=== PATIENT | male | born 1965 | race Caucasian/White ===

== ENCOUNTER 2017-01-22 11:42 | Inpatient (IN) | payer SELFPAY ==
[2017-01-22] MEDS ORDERED: ASPIRIN 81 MG TABLET, CHEWABLE PO ONE (12:26)
[2017-01-22] MEDS ORDERED: NORMAL SALINE 1000 ML 1,000 ML IV ONE ×3 (12:35→13:42)
[2017-01-22] MEDS ORDERED: IPRATROPIUM/ALBUTEROL 0.5-2.5 MG/3 ML AMPUL NEB ONE (12:35)
[2017-01-22] MEDS ORDERED: ALBUTEROL SULFATE 0.083% NEB 2.5 MG/3 ML AMPUL NEB ONE (12:36)
[2017-01-22] MEDS ORDERED: DEXAMETHASONE SOD PHOS INJ 10 MG/1 ML VIAL IV ONE (12:36)
[2017-01-22 12:47] LABS: HEMATOCRIT 39.2 % (37.9-51.0); HEMOGLOBIN 12.3 g/dL (13.5-17.0); HGB HCT DIFFERENCE -2.3; MEAN CORPUSCULAR HEMOGLOBIN 28.8 pg (27.0-33.4); MEAN CORPUSCULAR HGB CONC 31.5 g/dL (32.0-36.0); MEAN CORPUSCULAR VOLUME 91 fl (80-97); RED BLOOD COUNT 4.29 10^6/uL (4.35-5.55); RED CELL DISTRIBUTION WIDTH 14.5 % (11.5-14.0); WHITE BLOOD COUNT 9.4 10^3/uL (4.0-10.5)
[2017-01-22 12:56] LABS: PROTHROMBIN TIME 13.3 SEC (11.4-15.4)
[2017-01-22 13:02] LABS: ALANINE AMINOTRANSFERASE 17 U/L (21-72); ALBUMIN 3.6 g/dL (3.5-5.0); ALKALINE PHOSPHATASE 102 U/L (38-126); ANION GAP 9 (5-19); ASPARTATE AMINO TRANSFERASE 26 U/L (17-59); BILIRUBIN,DIRECT 0.3 mg/dL (0.0-0.4); BILIRUBIN,TOTAL 0.4 mg/dL (0.2-1.3); BLOOD UREA NITROGEN 19 mg/dL (7-20); CALCIUM 9.7 mg/dL (8.4-10.2); CARBON DIOXIDE 31 mmol/L (22-30); CHLORIDE 98 mmol/L (98-107); CREATINE KINASE 27 U/L (55-170); CREATININE RESULT 0.72 mg/dL (0.52-1.25); GLUCOSE 96 mg/dL (75-110); LIPASE 41.3 U/L (23-300); MAGNESIUM 1.9 mg/dL (1.6-2.3); POTASSIUM 4.7 mmol/L (3.6-5.0); TOTAL PROTEIN 7.7 g/dL (6.3-8.2)
[2017-01-22 13:13] LABS: CREATINE KINASE MB 1.21 ng/mL (<4.55)
[2017-01-22 13:16] LABS: TROPONIN I 0.036 ng/mL
--- NOTE | 2017-01-22 13:21 | RADIOLOGY REPORT (SQ) ---
EXAM DESCRIPTION: CHEST SINGLE VIEW COMPLETED DATE/TIME: 01/22/2017 1:08 pm REASON FOR STUDY: bed 17 cp COMPARISON: None. NUMBER OF VIEWS: One view. TECHNIQUE: Single frontal radiographic view of the chest acquired. LIMITATIONS: Lack of comparisons. FINDINGS: LUNGS AND PLEURA: Diffuse increased interstitial opacities in the lungs, likely chronic gi nadia additional scar and bullous emphysema in the right apex. No typical consolidating pneumonia. No significant pleural fluid. Slight right suprahilar increased density may be related to technique. MEDIASTINUM AND HILAR STRUCTURES: As above. Otherwise normal. HEART AND VASCULAR STRUCTURES: Heart likely grossly normal. Doubt failure. BONES: No acute findings. HARDWARE: None in the chest. OTHER: No other significant finding. IMPRESSION: Abnormal chest film. Findings may largely be chronic. See description above. Patient appears to be scheduled for CT, which will help to further evaluate the findings. TECHNICAL DOCUMENTATION: JOB ID: [id number] [employer]- All Rights Reserved
[2017-01-22 13:22] LABS: ARTERIAL BLOOD BASE EXCESS 2.2 mmol/L; ARTERIAL BLOOD O2 SATURATION 49.8 % (94-98)
[2017-01-22 13:25] LABS: BASOPHILS % (MANUAL) 0 % (0-2); EOSINOPHILS % (MANUAL) 5 % (0-6); LYMPHOCYTES % (MANUAL) 5 % (13-45); TOTAL CELLS COUNTED 100
[2017-01-22 13:26] LABS: HYPOCHROMASIA SLIGHT
[2017-01-22 13:41] LABS: ADD HIVPANEL? NO; HIV (1 AND 2) ANTIBODY NEGATIVE (NEGATIVE)
[2017-01-22] MEDS ORDERED: LEVOFLOXACIN 500 MG/D5W RTU 500 MG/100 ML RTUPB IV ONE (13:42)
--- NOTE | 2017-01-22 14:15 | RADIOLOGY REPORT (SQ) ---
EXAM DESCRIPTION: CT SOFT TISSUE NECK WITH COMPLETED DATE/TIME: 01/22/2017 2:03 pm REASON FOR STUDY: tachy hypoxia diffuse adenopathy COMPARISON: None. TECHNIQUE: Pre and post IV contrasted scanning from skull base through lung apices with review of gisselle ne, soft tissue and lung windows. Reconstructed coronal and sagittal MPR images reviewed. All image s stored on PACS. All CT scanners at this facility use dose modulation, iterative reconstruction, and/or weight based d osing when appropriate to reduce radiation dose to as low as reasonably achievable (ALARA). [facility]: Dose Right [facility]: CareDose [facility]: Dose Right [facility]: Teradose 4D [facility]: R[employer] Sy-Tec CONTRAST TYPE AND DOSE: contrast/concentration: Isovue 300.00 mg/ml; Total Contrast Delivered: 60.0 ml; Total Saline Delivered: 55.0 ml RENAL FUNCTION: Creatinine 0.7 RADIATION DOSE: Up-to-date CT equipment and radiation dose reduction techniques were employed. CTDIv ol: 10.1 mGy. DLP: 292 mGy-cm. . LIMITATIONS: None. FINDINGS: SKULL BASE: Intact. MAJOR SALIVARY GLANDS: No solid or cystic masses. No inflammatory changes. LYMPHADENOPATHY: Bulky bilateral diffuse adenopathy in the neck anteriorly and posteriorly extending inferiorly into the supra clavicular regions and upper mediastinum. Please see separately dictated c hest CT. Largest nodes probably measure up to more than 3.7 cm in short axis. MUCOSAL MASSES OR ASYMMETRY: No mucosal masses or asymmetry. LARYNX/CORDS: No abnormal findings. VASCULAR STRUCTURES: Mass-effect on the right internal jugular vein by adenopathy. Left jugular look s diminutive but relatively patent. LUNG APICES: Bullous emphysema. Adenopathy in the upper mediastinum. See dedicated chest CT. BONES: Spondylosis. No overt fracture or bone lesion. THYROID: Normal size. No masses. PARANASAL SINUSES: Clear. OTHER: No other significant finding. IMPRESSION: 1. Extensive neck adenopathy as above. Presumably related to lymphoma or other malignan cy. Please see separately dictated CT chest same date. TECHNICAL DOCUMENTATION: JOB ID: [id number] Quality ID # [id number]: Final reports with documentation of one or more dose reduction techniques (e.g., Au tomated exposure control, adjustment of the mA and/or kV according to patient size, use of iterative reconstruction technique) 2010 [employer]- All Rights Reserved
--- NOTE | 2017-01-22 14:17 | ER Document Report ---
ED General - General Chief Complaint: Chest Pain Stated Complaint: CHEST PAIN Time Seen by Provider: 01/22/17 12:37 TRAVEL OUTSIDE OF THE [place] IN LAST 30 DAYS: No - HPI Patient complains to provider of: Chest pain shortness of breath Notes: Patient coming in for evaluation chest pain shortness of breath no acute distorted. Patient also states he has nodules that have been made to have his neck underneath his armpits for the last 3 months. Patient states he has been grown in size. Patient denies any fevers chills nausea vomiting or night sweats. Patient does state he had a 15 pound weight loss recently. Patient is a smoker otherwise denies any alcohol or drug use. Patient states he is allergic to penicillin denies any taking any other medications denies any other past medical history. Patient states recently her mood from [place] to the area approximately 3 months ago - Related Data Allergies/Adverse Reactions: Penicillins Allergy (Verified 01/22/17 11:56) Home Medications: Current Home Medications No Home Medications 01/22/17 [History] Past Medical History - Social History Smoking Status: Current Every Day Smoker Frequency of alcohol use: None Drug Abuse: None Family History: Reviewed & Not Pertinent Renal/ Medical History: Denies: Hx Peritoneal Dialysis Surgical Hx: Negative Review of Systems - Review of Systems Constitutional: No symptoms reported EENT: No symptoms reported Cardiovascular: Chest pain Respiratory: Short of breath, Wheezing Gastrointestinal: No symptoms reported Genitourinary: No symptoms reported Male Genitourinary: No symptoms reported Musculoskeletal: No symptoms reported Skin: No symptoms reported Hematologic/Lymphatic: Swollen glands Neurological/Psychological: No symptoms reported -: Yes All other systems reviewed and negative Physical Exam - Vital signs Vitals: Pulse Resp BP Pulse Ox 117 H 20 132/93 H 90 L 01/22/17 11:57 01/22/17 11:57 01/22/17 11:57 01/22/17 11:57 Interpretation: Normal - General General appearance: Appears well, Alert - HEENT Head: Normocephalic, Atraumatic Eyes: Normal Conjunctiva: Normal Cornea: Normal Pupils: PERRL Neck: Other - Bilateral lymphadenopathy - Respiratory Respiratory status: No respiratory distress Chest status: Nontender Breath sounds: Normal Chest palpation: Normal - Cardiovascular Rhythm: Regular Heart sounds: Normal auscultation Murmur: No - Abdominal Inspection: Normal Distension: No distension Bowel sounds: Normal Tenderness: Nontender Organomegaly: No organomegaly - Back Back: Normal, Nontender - Extremities General upper extremity: Normal inspection, Nontender, Normal color, Normal ROM , Normal temperature, Other - Bilateral lymphadenopathy in the axilla region General lower extremity: Normal inspection, Nontender, Normal color, Normal ROM , Normal temperature, Normal weight bearing. No: Adis's sign - Neurological Neuro grossly intact: Yes Cognition: Normal Orientation: AAOx4 [place] Coma Scale Eye Opening: Spontaneous Helga Coma Scale Verbal: Oriented [place] Coma Scale Motor: Obeys Commands [place] Coma Scale Total: 15 Speech: Normal Motor strength normal: LUE, RUE, LLE, RLE Sensory: Normal - Psychological Associated symptoms: Normal affect, Normal mood - Skin Skin Temperature: Warm Skin Moisture: Dry Skin Color: Normal Course - Re-evaluation Re-evalutation: 01/22/17 14:55 Discussed finding with hospitalist Wenceslao at this time requesting CT of the head to evaluate for masses the patient more likely has underlying malignancy. 01/22/17 15:[address] was read by the radiologist as negative. Patient will start Lovenox per hospitalist request. Will admit the patient for further evaluation of his symptoms. I did update the patient of underlying cancer malignancy or lymphoma. Patient states understanding - Vital Signs Vital signs: Temp Pulse Resp BP Pulse Ox 117 H 22 H 122/78 100 01/22/17 11:57 01/22/17 15:23 01/22/17 15:21 01/22/17 15:23 - Laboratory Result Diagrams: 01/22/17 12:31 01/22/17 12:31 Laboratory results interpreted by me: 01/22/17 01/22/17 01/22/17 12:31 12:31 13:15 RBC 4.29 L Hgb 12.3 L MCHC 31.5 L RDW 14.5 H Seg Neuts % (Manual) 84 H Lymphocytes % (Manual) 5 L ABG pO2 26.2 L* ABG HCO3 26.7 H ABG Total CO2 28.0 H ABG O2 Saturation 49.8 L Carbon Dioxide 31 H ALT 17 L Creatine Kinase 27 L Urine Blood 01/22/17 01/22/17 14:13 14:26 RBC Hgb MCHC RDW Seg Neuts % (Manual) Lymphocytes % (Manual) ABG pO2 46.4 L ABG HCO3 26.6 H ABG Total CO2 27.9 H ABG O2 Saturation 82.7 L Carbon Dioxide ALT Creatine Kinase Urine Blood SMALL H Critical Care Note - Critical Care Note Total time excluding time spent on procedures (mins): 60 Comments: Multiple evaluations for abnormal vital signs. Discharge - Discharge Clinical Impression: Diffuse lymphadenopathy, Hypoxia, Infiltrative changes on CT scan Pulmonary embolism Qualifiers: Pulmonary embolism type: other Chronicity: acute Acute cor pulmonale presence: without acute cor pulmonale Qualified Code(s): I26.99 - Other pulmonary embolism without acute cor pulmonale Condition: Good Disposition: ADMITTED INPATIENT Admitting Provider: Darien Freeman Unit Admitted: [facility]
--- NOTE | 2017-01-22 14:22 | RADIOLOGY REPORT (SQ) ---
EXAM DESCRIPTION: CTA CHEST COMPLETED DATE/TIME: 01/22/2017 2:03 pm REASON FOR STUDY: tachy hypoxia COMPARISON: None. TECHNIQUE: CT scan of the chest performed using helical scanning technique with dynamic intravenous contrast injection. Images reviewed with lung, soft tissue and bone windows. Reconstructed coronal and sagittal MPR images reviewed. Additional 3 dimensional post-processing performed to develop Maximal Intensity Projection images ([place] P). All images stored on PACS. All CT scanners at this facility use dose modulation, iterative reconstruction, and/or weight based d osing when appropriate to reduce radiation dose to as low as reasonably achievable (ALARA). [facility]: Dose Right [facility]: CareDose [facility]: Dose Right [facility]: Teradose 4D [facility]: CrossChx CONTRAST TYPE AND DOSE: contrast/concentration: Isovue 370.00 mg/ml; Total Contrast Delivered: 100 ml; Total Saline Delivered: 106.0 ml Contrast bolus optimized for the pulmonary arteries. Not diagnostic for the aorta. RENAL FUNCTION: Creatinine 0.7 RADIATION DOSE: Up-to-date CT equipment and radiation dose reduction techniques were employed. CTDIv ol: 16.5 - 29.8 mGy. DLP: 1039 mGy-cm. . LIMITATIONS: None. FINDINGS: LUNGS AND PLEURA: Bullous upper lobe emphysema and scar. Patchy additional superimposed a reas of airspace disease in the right middle lobe particularly. Additional hazy ground-glass densiti es throughout the lungs and numerous tiny nodular opacities which are most conspicuous in the right u pper lobe. No significant pleural effusion. AORTA AND GREAT VESSELS: No aneurysm. Contrast bolus not optimized for the aorta. HEART: Cardiac enlargement with mild pericardial thickening. Mild coronary calcifications. PULMONARY ARTERIES: Positive for pulmonary embolus with clot extending particularly into the lower lo be arteries. There is also clot in the left upper lobe. HILAR AND MEDIASTINAL STRUCTURES: Bulky mediastinal adenopathy. Innumerable enlarged nodes throughou t all mediastinal stations with some js tissue also prominent in the hilar stations, right greater than left. HARDWARE: None in the chest. UPPER ABDOMEN: Suspect retrocrural and gastrohepatic ligament adenopathy. Incomplete assessment. THYROID AND OTHER SOFT TISSUES: Supraclavicular and axillary adenopathy particularly on the left. BONES: No acute or significant finding. 3D MIPS: Confirm above findings. OTHER: No other significant finding. IMPRESSION: 1. Positive for pulmonary embolus. 2. Extensive adenopathy, most notable in the mediast inum, supraclavicular tissues and left axilla. Presumably related to lymphoma or other malignancy. Extensive lung changes are present. Some of this is chronic. Superimposed acute infection and/or ma lignancy also likely. COMMENT: Quality ID # [id number]: Final reports with documentation of one or more dose reduction techniques (e.g., Automated exposure control, adjustment of the mA and/or kV according to patient size, use of iterative reconstruction technique) TECHNICAL DOCUMENTATION: JOB ID: [id number] [employer]- All Rights Reserved
[2017-01-22 14:32] LABS: APPEARANCE,URINE CLEAR; BILIRUBIN,URINE NEGATIVE (NEGATIVE); GLUCOSE, URINE NEGATIVE (NEGATIVE); KETONES,URINE NEGATIVE (NEGATIVE); LEUKOCYTE ESTERASE,URINE NEGATIVE (NEGATIVE); NITRITE,URINE NEGATIVE (NEGATIVE); PROTEIN,URINE NEGATIVE (NEGATIVE); URINE SPECIFIC GRAVITY 1.008; UROBILINOGEN,URINE NEGATIVE mg/dL (<2.0)
[2017-01-22 14:45] LABS: ARTERIAL BLOOD BASE EXCESS 1.7 mmol/L; ARTERIAL BLOOD O2 SATURATION 82.7 % (94-98)
[2017-01-22 14:48] LABS: URINE BARBITURATES SCREEN NEGATIVE; URINE METHADONE SCREEN NEGATIVE; URINE OPIATES LOW NEGATIVE; URINE PHENCYCLIDINE SCREEN NEGATIVE
--- NOTE | 2017-01-22 15:09 | RADIOLOGY REPORT (SQ) ---
EXAM DESCRIPTION: CT HEAD WITHOUT COMPLETED DATE/TIME: 01/22/2017 2:57 pm REASON FOR STUDY: eval mass COMPARISON: None. TECHNIQUE: Axial images acquired through the brain without intravenous contrast. Images reviewed wi th bone, brain and subdural windows. Images stored on PACS. All CT scanners at this facility use dose modulation, iterative reconstruction, and/or weight based d osing when appropriate to reduce radiation dose to as low as reasonably achievable (ALARA). [facility]: Dose Right [facility]: CareDose [facility]: Dose Right [facility]: Teradose 4D [facility]: Smart Cardiostrong RADIATION DOSE: Up-to-date CT equipment and radiation dose reduction techniques were employed. CTDIv ol: 64.6 mGy. DLP: 2326 mGy-cm. mGy. LIMITATIONS: None. FINDINGS: VENTRICLES: Normal size and contour. CEREBRUM: No masses. No hemorrhage. No midline shift. No evidence for acute infarction. Normal gra y/white matter differentiation. No areas of low density in the white matter. CEREBELLUM: No masses. No hemorrhage. No alteration of density. No evidence for acute infarction. EXTRAAXIAL SPACES: No fluid collections. No masses. ORBITS AND GLOBE: No intra- or extraconal masses. Normal contour of globe without masses. CALVARIUM: No fracture. PARANASAL SINUSES: No fluid or mucosal thickening. SOFT TISSUES: No mass or hematoma. OTHER: No other significant finding. IMPRESSION: NORMAL BRAIN CT WITHOUT CONTRAST. COMMENT: Quality ID # [id number]: Final reports with documentation of one or more dose reduction techniques (e.g., Automated exposure control, adjustment of the mA and/or kV according to patient size, use of iterative reconstruction technique) TECHNICAL DOCUMENTATION: JOB ID: [id number]- All Rights Reserved
[2017-01-22] MEDS ORDERED: ENOXAPARIN SODIUM INJ 80 MG/0.8 ML DISP.SYRIN SUBCUT SCH (15:15)
[2017-01-22] MEDS ORDERED: IPRATROPIUM/ALBUTEROL 0.5-2.5 MG/3 ML AMPUL NEB PRN ×2 (16:32→23:45)
[2017-01-22] MEDS ORDERED: ONDANSETRON HCL INJ/PF 4 MG/2 ML SDV IV PRN (16:32)
--- NOTE | 2017-01-22 17:02 | PDOC H&P ---
History of Present Illness Admission Date/PCP: 01/22/2015 PCP: None Patient complains of: Shortness of breath History of Present Illness: BIMAL YOUNG is a 51 year old white male with no significant past medical history who presents to the emergency room with complaints of shortness of breath. According to the patient he just moved into the area a couple of months ago. He states that before he moved he noticed some nodules near his collarbone. He states that they have been getting larger over the last 2-3 months. He has not sought any medical intervention until today when he presented to urgent care. On presentation there he complained of progressive shortness of breath and enlargement of these nodules. He was redirected here to the emergency room. In our ED the patient was found to have an oxygen saturation of 85% on nasal cannula and down to 83% on room air. ABG was obtained which showed PO2 of 46% on room air. The patient underwent CT scan of the chest which is positive for pulmonary embolus and extensive adenopathy most notable in the mediastinum supraclavicular tissues and left axilla. Presumably this is related to lymphoma or malignancy. Superimposed acute infection and/or malignancy is also likely. CT of the neck showed similar findings. CT of the head was also done which showed no acute findings. The patient was started on 2 L by nasal cannula oxygen but did not have great improvement in his oxygen saturation. He was changed over to bilevel Pap and his O2 sats increased to 98%. The patient was started on levofloxacin secondary to CT findings. In addition to this he was given therapeutic dose of Lovenox down in the emergency room. In my discussion with the patient he denies any fevers or chills. He does have chest pain especially with breathing and obvious shortness of breath. He denies any nausea vomiting but does however admit to about 10 pound weight loss. He is unclear over what period of time this is taken place but notes that his weight was down by about 10 pounds at the urgent care facility. The patient does not have a primary care physician. Past Medical History Medical History: None Past Surgical History Past Surgical History: Reports: None Social History Information Source: Patient Smoking Status: Current Every Day Smoker Frequency of Alcohol Use: None Drugs: None Past Social History Note: The patient has smoked about a pack to a day for approximately 10-15 years. He quit 5 years ago and transitioned over to E cigarettes. Family History Family History: None Family History: The patient is adopted and does not know his family history. Parental Family History Reviewed: Yes - The patient is adopted Children Family History Reviewed: Yes Sibling(s) Family History Reviewed.: Unknown Medication/Allergy Home Medications: No Home Medications 01/22/17 Allergies/Adverse Reactions: Penicillins Allergy (Verified 01/22/17 11:56) Review of Systems Review of Systems: Patient admits to chest pain, shortness of breath, 10 pound weight loss over an unspecified amount of time. He denies nausea, vomiting, fevers, chills, blood in stool, blood in the urine, throwing up blood, coughing up blood, diarrhea, constipation, musculoskeletal aches and pains or arthritis, abdominal pain, neck pain, difficulty swallowing, tenderness of the neck lesions, dysuria. Physical Exam Vital Signs: Temp Pulse Resp BP Pulse Ox 117 H 22 H 122/78 100 01/22/17 11:57 01/22/17 15:23 01/22/17 15:21 01/22/17 15:23 Intake & Output 01/21/17 01/22/17 01/23/17 06:59 06:59 06:59 Weight 68.1 kg GENERAL: This is a well-developed and nourished appearing white male resting in bed in respiratory distress with bilevel Pap in place. HEENT: Normocephalic atraumatic. Sclera are anicteric. Dry mucous membranes. Fair dentition. The patient has large golf ball size supraclavicular lymphadenopathy left greater than right. He also has bilateral submandibular lymphadenopathy. He has bilateral axillary lymphadenopathy. No inguinal lymphadenopathy. All of the lymph nodes seem to be mobile and firm. HEART: Regular rate and rhythm. No murmurs, rubs or gallops. LUNGS: Clear to auscultation bilaterally with equal rise and fall of the chest. The patient is resting easily on BiPAP but expressed claustrophobia. When the BiPAP is removed he becomes tachypneic about 2 minutes into our conversation at a rate ranging between 28 and 33. ABDOMEN: Soft, nontender, nondistended with normoactive bowel sounds EXTREMETIES: No clubbing, cyanosis or edema. 2+ peripheral pulses bilaterally. Strength is 5 out of 5 in both the upper and lower extremities bilaterally. : Genitals appear normal. NEURO: Awake, alert and oriented 3. Cranial nerves II through XII are specifically intact intact. Skin: Warm, dry normal color Results Laboratory Results: 01/22/17 12:31 01/22/17 12:31 01/22/17 01/22/17 01/22/17 12:31 12:31 13:15 WBC 9.4 RBC 4.29 L Hgb 12.3 L Hct 39.2 MCV 91 MCH 28.8 MCHC 31.5 L RDW 14.5 H Plt Count 353 Seg Neutrophils % Not Reportable Lymphocytes % Not Reportable Monocytes % Not Reportable Eosinophils % Not Reportable Basophils % Not Reportable Absolute Neutrophils Not Reportable Absolute Lymphocytes Not Reportable Absolute Monocytes Not Reportable Absolute Eosinophils Not Reportable Absolute Basophils Not Reportable Carbonic Acid 1.25 HCO3/H2CO3 Ratio 21:1 ABG pH 7.43 ABG pCO2 41.5 ABG pO2 26.2 L* ABG HCO3 26.7 H ABG O2 Saturation 49.8 L ABG Base Excess 2.2 FiO2 2 LPM Sodium 138.0 Potassium 4.7 Chloride 98 Carbon Dioxide 31 H Anion Gap 9 BUN 19 Creatinine 0.72 Est GFR ( Amer) > 60 Est GFR (Non-Af Amer) > 60 Glucose 96 Calcium 9.7 Magnesium 1.9 Total Bilirubin 0.4 AST 26 ALT 17 L Alkaline Phosphatase 102 Total Protein 7.7 Albumin 3.6 Lipase 41.3 Urine Color Urine Appearance Urine pH Ur Specific [place] Urine Protein Urine Glucose (UA) Urine Ketones Urine Blood Urine Nitrite Ur Leukocyte Esterase Urine WBC (Auto) Urine RBC (Auto) 01/22/17 01/22/17 14:13 14:26 WBC RBC Hgb Hct MCV MCH MCHC RDW Plt Count Seg Neutrophils % Lymphocytes % Monocytes % Eosinophils % Basophils % Absolute Neutrophils Absolute Lymphocytes Absolute Monocytes Absolute Eosinophils Absolute Basophils Carbonic Acid 1.29 HCO3/H2CO3 Ratio 20:1 ABG pH 7.41 ABG pCO2 42.8 ABG pO2 46.4 L ABG HCO3 26.6 H ABG O2 Saturation 82.7 L ABG Base Excess 1.7 FiO2 ROOM AIR Sodium Potassium Chloride Carbon Dioxide Anion Gap BUN Creatinine Est GFR ( Amer) Est GFR (Non-Af Amer) Glucose Calcium Magnesium Total Bilirubin AST ALT Alkaline Phosphatase Total Protein Albumin Lipase Urine Color STRAW Urine Appearance CLEAR Urine pH 6.0 Ur Specific [place]buck[place] 1.008 Urine Protein NEGATIVE Urine Glucose (UA) NEGATIVE Urine Ketones NEGATIVE Urine Blood SMALL H Urine Nitrite NEGATIVE Ur Leukocyte Esterase NEGATIVE Urine WBC (Auto) 1 Urine RBC (Auto) 1 01/22/17 01/22/17 12:31 12:31 Creatine Kinase 27 L CK-MB (CK-2) 1.21 Troponin I 0.036 Impressions: Chest X-Ray 01/22/17 12:26 IMPRESSION: Abnormal chest film. Findings may largely be chronic. See description above. Patient appears to be scheduled for CT, which will help to further evaluate the findings. Chest/Abdomen CTA 01/22/17 12:34 IMPRESSION: 1. Positive for pulmonary embolus. 2. Extensive adenopathy, most notable in the mediastinum, supraclavicular tissues and left axilla. Presumably related to lymphoma or other malignancy. Extensive lung changes are present. Some of this is chronic. Superimposed acute infection and/or malignancy also likely. Soft Tissue Neck CT 01/22/17 12:34 IMPRESSION: 1. Extensive neck adenopathy as above. Presumably related to lymphoma or other malignancy. Please see separately dictated CT chest same date. Head CT 01/22/17 14:36 IMPRESSION: NORMAL BRAIN CT WITHOUT CONTRAST. Assessment & Plan - Diagnosis (1) Acute hypoxemic respiratory failure Plan: Respiratory failure secondary to underlying PE and what is most likely lymphoma. Continue bilevel Pap. Obtain repeat ABG in the morning. As needed nebulizer treatments. Treat underlying conditions. (2) Pulmonary embolism Qualifiers: Pulmonary embolism type: other Chronicity: acute Acute cor pulmonale presence: without acute cor pulmonale Qualified Code(s): I26.99 - Other pulmonary embolism without acute cor pulmonale Plan: PE is likely secondary to underlying lymphoma. Continue Lovenox at therapeutic doses. This will of course need to be held for biopsy of the patient's lymphadenopathy. I will not start any oral anticoagulation as of yet. Firstly I would like for the patient to be anticoagulated with Lovenox for at least 24 hours. Additionally, I would like for him to have his lymph node biopsy prior to discharge. (3) Diffuse lymphadenopathy Plan: The patient has diffuse lymphadenopathy. At this point I suspect it is some sort of underlying lymphoma. Patient will need biopsy. Most likely his supraclavicular lymph node will be the most accessible site. I would like for the patient's respiratory status to stabilize before sending him to IR for biopsy. Likely he can undergo aspiration of the lymph node. We will need to hold his anticoagulation the night prior. Monospot test was negative and H IV is pending. (4) Nicotine dependence Plan: Smoking cessation/E cigarette cessation is advised. - Time Time Spent: 30 to 50 Minutes Anticipated discharge: Home - Inpatient Certification Medical Necessity: Need Close Monitoring Due to Risk of Patient Decompensation
[2017-01-22] MEDS: POTASSI CL 20 MEQ/1/2NS 1L 20 MEQ/1,000 ML RTUINJ IV PRN (18:34)
--- NOTE | 2017-01-22 20:22 | EKG REPORT ---
SEVERITY:- BORDERLINE ECG - SINUS TACHYCARDIA RIGHT AXIS DEVIATION LOW VOLTAGE IN FRONTAL LEADS BORDERLINE T ABNORMALITIES, INFERIOR LEADS POOR R PROGRESSION ANTERIOR PRECORDIAL LEADS. : Confirmed by: Vinnie Hagan MD 22-Jan-2017 20:21:43
[2017-01-23] MEDS: ENOXAPARIN SODIUM INJ 80 MG/0.8 ML DISP.SYRIN SUBCUT SCH ×3 (00:55→23:28)
[2017-01-23 05:17] LABS: ANION GAP 10 (5-19); BLOOD UREA NITROGEN 12 mg/dL (7-20); CALCIUM 9.6 mg/dL (8.4-10.2); CARBON DIOXIDE 27 mmol/L (22-30); CHLORIDE 104 mmol/L (98-107); CREATININE RESULT 0.54 mg/dL (0.52-1.25); GLUCOSE 106 mg/dL (75-110); MAGNESIUM 1.9 mg/dL (1.6-2.3); POTASSIUM 4.6 mmol/L (3.6-5.0); SODIUM 140.7 mmol/L (137-145)
[2017-01-23 05:32] LABS: HEMATOCRIT 34.2 % (37.9-51.0); HEMOGLOBIN 11.3 g/dL (13.5-17.0); HGB HCT DIFFERENCE -0.3; MEAN CORPUSCULAR HEMOGLOBIN 29.7 pg (27.0-33.4); MEAN CORPUSCULAR HGB CONC 32.9 g/dL (32.0-36.0); MEAN CORPUSCULAR VOLUME 90 fl (80-97); RED CELL DISTRIBUTION WIDTH 14.7 % (11.5-14.0); WHITE BLOOD COUNT 8.4 10^3/uL (4.0-10.5)
[2017-01-23 05:56] LABS: BASOPHILS % (MANUAL) 0 % (0-2); EOSINOPHILS % (MANUAL) 1 % (0-6); LYMPHOCYTES % (MANUAL) 2 % (13-45); TOTAL CELLS COUNTED 100
[2017-01-23 05:57] LABS: HYPOCHROMASIA SLIGHT
[2017-01-23 05:59] LABS: ANISOCYTOSIS SLIGHT; SCHISTOCYTES SLIGHT
[2017-01-23] MEDS ORDERED: HYDRALAZINE HCL 10 MG TABLET PO PRN (08:12)
[2017-01-23] MEDS: LEVOFLOXACIN 500 MG TABLET PO SCH (09:24)
[2017-01-23] MEDS: POTASSI CL 20 MEQ/1/2NS 1L 20 MEQ/1,000 ML RTUINJ IV PRN (09:25)
[2017-01-23] MEDS: ACETAMINOPHEN 325 MG TABLET PO PRN (11:16)
[2017-01-23 15:24] LABS: ARTERIAL BLOOD O2 SATURATION 90.7 % (94-98)
--- NOTE | 2017-01-23 15:42 | PDOC PROGRESS REPORT ---
Subjective Progress Note for:: 01/23/17 Subjective:: this is a follow-up visit for pulmonary embolism and diffuse lymphadenopathy. Patient was seen at the bedside this morning andStates that he did well overnight. He said that he was able to maintain his breathing by nasal cannula. He denies any current chest pain or worsening shortness of breath. We did rediscuss his potential diagnoses. His mother and aunt were at the bedside. Physical Exam Vital Signs: Temp Pulse Resp BP Pulse Ox 98.1 F 119 H 20 148/86 H 96 01/23/17 11:25 01/23/17 14:00 01/23/17 11:25 01/23/17 11:25 01/23/17 11:25 Intake & Output 01/22/17 01/23/17 01/24/17 06:59 06:59 06:59 Intake Total 1109 Balance 1109 Weight 66.6 kg GENERAL: This is a well-developed and nourished appearing white male resting in bed in no acute respiratory distress today. Looking much better HEENT: bilateral submandibular lymphadenopathy firm and mobile HEART: Regular rate and rhythm. No murmurs, rubs or gallops. LUNGS: Subtle bibasilar crackles with equal rise and fall of the chest. ABDOMEN: Soft, nontender, nondistended with normoactive bowel sounds EXTREMETIES: No clubbing, cyanosis or edema. 2+ peripheral pulses bilaterally. NEURO: Awake, alert and oriented 3. Cranial nerves II through XII are specifically intact intact. Skin: Warm, dry normal color Results Laboratory Results: 01/23/17 04:37 01/23/17 04:37 01/23/17 01/23/17 01/23/17 04:37 04:37 15:12 WBC 8.4 RBC 3.80 L Hgb 11.3 L Hct 34.2 L MCV 90 MCH 29.7 MCHC 32.9 RDW 14.7 H Plt Count 287 Seg Neutrophils % Not Reportable Lymphocytes % Not Reportable Monocytes % Not Reportable Eosinophils % Not Reportable Basophils % Not Reportable Absolute Neutrophils Not Reportable Absolute Lymphocytes Not Reportable Absolute Monocytes Not Reportable Absolute Eosinophils Not Reportable Absolute Basophils Not Reportable Carbonic Acid 1.44 H HCO3/H2CO3 Ratio 20:1 ABG pH 7.41 ABG pCO2 47.8 H ABG pO2 59.4 L ABG HCO3 29.4 H ABG O2 Saturation 90.7 L ABG Base Excess 4.0 FiO2 6L Sodium 140.7 Potassium 4.6 Chloride 104 Carbon Dioxide 27 Anion Gap 10 BUN 12 Creatinine 0.54 Est GFR ( Amer) > 60 Est GFR (Non-Af Amer) > 60 Glucose 106 Calcium 9.6 Magnesium 1.9 01/23/17 00:57 Troponin I 0.024 Impressions: Chest X-Ray 01/22/17 12:26 IMPRESSION: Abnormal chest film. Findings may largely be chronic. See description above. Patient appears to be scheduled for CT, which will help to further evaluate the findings. Chest/Abdomen CTA 01/22/17 12:34 IMPRESSION: 1. Positive for pulmonary embolus. 2. Extensive adenopathy, most notable in the mediastinum, supraclavicular tissues and left axilla. Presumably related to lymphoma or other malignancy. Extensive lung changes are present. Some of this is chronic. Superimposed acute infection and/or malignancy also likely. Soft Tissue Neck CT 01/22/17 12:34 IMPRESSION: 1. Extensive neck adenopathy as above. Presumably related to lymphoma or other malignancy. Please see separately dictated CT chest same date. Head CT 01/22/17 14:36 IMPRESSION: NORMAL BRAIN CT WITHOUT CONTRAST. Assessment & Plan - Diagnosis (1) Acute hypoxemic respiratory failure Plan: Respiratory failure secondary to underlying PE and what is most likely lymphoma. Continue bilevel Pap As needed. continue As needed nebulizer treatments. Treat underlying conditions. overall the patient does look better today. He is currently on 6 L by nasal cannula. (2) Pulmonary embolism Qualifiers: Pulmonary embolism type: other Chronicity: acute Acute cor pulmonale presence: without acute cor pulmonale Qualified Code(s): I26.99 - Other pulmonary embolism without acute cor pulmonale Plan: PE is likely secondary to underlying lymphoma. Continue Lovenox at therapeutic doses. Hold this will of course need to be held for biopsy of the patient's lymphadenopathy. I will not start any oral anticoagulation as of yet. Lovenox this evening for potential of biopsy tomorrow. (3) Diffuse lymphadenopathy Plan: The patient has diffuse lymphadenopathy. At this point I suspect it is some sort of underlying lymphoma. Patient will need biopsy. HIV pending. Biopsy has been ordered. We will also consult oncology. (4) Nicotine dependence Plan: Smoking cessation/E cigarette cessation is advised. - Time Time Spent with patient: 25-34 minutes - Inpatient Certification Medical Necessity: Need Close Monitoring Due to Risk of Patient Decompensation
[2017-01-24] MEDS: ACETAMINOPHEN 325 MG TABLET PO PRN (05:47)
[2017-01-24 06:25] LABS: HEMATOCRIT 36.6 % (37.9-51.0); HEMOGLOBIN 11.6 g/dL (13.5-17.0); HGB HCT DIFFERENCE -1.8; MEAN CORPUSCULAR HEMOGLOBIN 28.7 pg (27.0-33.4); MEAN CORPUSCULAR HGB CONC 31.7 g/dL (32.0-36.0); MEAN CORPUSCULAR VOLUME 91 fl (80-97); RED BLOOD COUNT 4.05 10^6/uL (4.35-5.55); RED CELL DISTRIBUTION WIDTH 14.7 % (11.5-14.0); WHITE BLOOD COUNT 10.3 10^3/uL (4.0-10.5)
[2017-01-24 06:44] LABS: ANION GAP 8 (5-19); BLOOD UREA NITROGEN 17 mg/dL (7-20); CALCIUM 9.5 mg/dL (8.4-10.2); CARBON DIOXIDE 31 mmol/L (22-30); CHLORIDE 100 mmol/L (98-107); CREATININE RESULT 0.57 mg/dL (0.52-1.25); GLUCOSE 93 mg/dL (75-110); MAGNESIUM 1.8 mg/dL (1.6-2.3); POTASSIUM 4.4 mmol/L (3.6-5.0); SODIUM 138.6 mmol/L (137-145)
--- NOTE | 2017-01-24 09:18 | PDOC CONSULTATION ---
Consultation Consult Date: 01/24/17 Attending physician:: JOSEMANUEL BOYLE Consult reason:: Lymphadenopathy History of Present Illness Admission Date/PCP: 01/22/17 16:33 Patient complains of: Lymphadenopathy History of Present Illness: 51-year-old male with increasing lymphadenopathy, he noticed neck lymphadenopathy about 2-3 months ago and has been increasing, ultimately presented with shortness of breath and chest pain, CT of the chest indicated diffuse mediastinal adenopathy, supraclavicular adenopathy, this was followed by neck CT which showed bilateral enlarged lymph nodes largest was close to 4 cm , they are very visible and palpable on physical exam. He does not have a primary tumor noted on CT of the chest or CT of the neck, overall picture concerning for lymphoma. Past Surgical History Past Surgical History: Reports: None Social History Smoking Status: Current Every Day Smoker Cigarettes Packs Per Day: 1 Last Time Smoked: 01/21/17 Frequency of Alcohol Use: None Hx Recreational Drug Use: No Drugs: None Hx Prescription Drug Abuse: No - Advance Directive Resuscitation Status: Full Code Family History Family History: None Parental Family History Reviewed: Yes Children Family History Reviewed: Yes Sibling(s) Family History Reviewed.: Yes Medication/Allergy Home Medications: No Home Medications 01/22/17 Allergies/Adverse Reactions: Penicillins Allergy (Verified 01/22/17 11:56) Review of Systems Constitutional: ABSENT: chills, fever(s), headache(s), weight gain, weight loss Eyes: ABSENT: visual disturbances Ears: ABSENT: hearing changes Cardiovascular: ABSENT: chest pain, dyspnea on exertion, edema, orthropnea, palpitations Respiratory: ABSENT: cough, hemoptysis Gastrointestinal: ABSENT: abdominal pain, constipation, diarrhea, hematemesis, hematochezia, nausea, vomiting Genitourinary: ABSENT: dysuria, hematuria Musculoskeletal: ABSENT: joint swelling Integumentary: ABSENT: rash, wounds Neurological: ABSENT: abnormal gait, abnormal speech, confusion, dizziness, focal weakness, syncope Psychiatric: ABSENT: anxiety, depression, homidical ideation, suicidal ideation Endocrine: ABSENT: cold intolerance, heat intolerance, polydipsia, polyuria Hematologic/Lymphatic: ABSENT: easy bleeding, easy bruising Physical Exam Vital Signs: Temp Pulse Resp BP Pulse Ox 98.5 F 102 H 22 H 118/85 94 01/24/17 07:44 01/24/17 07:44 01/24/17 07:44 01/24/17 07:44 01/24/17 07:44 Intake & Output 01/23/17 01/24/17 01/25/17 06:59 06:59 06:59 Intake Total 1109 2245 Balance 1109 2245 Weight 66.6 kg 63.2 kg General appearance: PRESENT: no acute distress, well-developed, well-nourished Head exam: PRESENT: atraumatic, normocephalic Eye exam: PRESENT: conjunctiva pink, EOMI, PERRLA. ABSENT: scleral icterus Ear exam: PRESENT: normal external ear exam Mouth exam: PRESENT: moist, tongue midline Neck exam: PRESENT: lymphadenopathy - Diffuse adenopathy in the neck Respiratory exam: PRESENT: clear to auscultation [place]. ABSENT: rales, rhonchi, wheezes Cardiovascular exam: PRESENT: RRR. ABSENT: diastolic murmur, rubs, systolic murmur Pulses: PRESENT: normal dorsalis pedis pul Vascular exam: PRESENT: normal capillary refill GI/Abdominal exam: PRESENT: normal bowel sounds, soft. ABSENT: distended, guarding, mass, organolmegaly, rebound, tenderness Rectal exam: PRESENT: deferred Extremities exam: PRESENT: full ROM. ABSENT: calf tenderness, clubbing, pedal edema Neurological exam: PRESENT: alert, awake, oriented to person, oriented to place , oriented to time, oriented to situation, CN II-XII grossly intact. ABSENT: motor sensory deficit Psychiatric exam: PRESENT: appropriate affect, normal mood. ABSENT: homicidal ideation, suicidal ideation Skin exam: PRESENT: dry, intact, warm. ABSENT: cyanosis, rash Results Laboratory Results: 01/24/17 05:27 01/24/17 05:27 01/23/17 01/24/17 01/24/17 15:12 05:27 05:27 WBC 10.3 RBC 4.05 L Hgb 11.6 L Hct 36.6 L MCV 91 MCH 28.7 MCHC 31.7 L RDW 14.7 H Plt Count 315 Carbonic Acid 1.44 H HCO3/H2CO3 Ratio 20:1 ABG pH 7.41 ABG pCO2 47.8 H ABG pO2 59.4 L ABG HCO3 29.4 H ABG O2 Saturation 90.7 L ABG Base Excess 4.0 FiO2 6L Sodium 138.6 Potassium 4.4 Chloride 100 Carbon Dioxide 31 H Anion Gap 8 BUN 17 Creatinine 0.57 Est GFR ( Amer) > 60 Est GFR (Non-Af Amer) > 60 Glucose 93 Calcium 9.5 Magnesium 1.8 01/23/17 00:57 Troponin I 0.024 Impressions: Chest X-Ray 01/22/17 12:26 IMPRESSION: Abnormal chest film. Findings may largely be chronic. See description above. Patient appears to be scheduled for CT, which will help to further evaluate the findings. Chest/Abdomen CTA 01/22/17 12:34 IMPRESSION: 1. Positive for pulmonary embolus. 2. Extensive adenopathy, most notable in the mediastinum, supraclavicular tissues and left axilla. Presumably related to lymphoma or other malignancy. Extensive lung changes are present. Some of this is chronic. Superimposed acute infection and/or malignancy also likely. Soft Tissue Neck CT 01/22/17 12:34 IMPRESSION: 1. Extensive neck adenopathy as above. Presumably related to lymphoma or other malignancy. Please see separately dictated CT chest same date. Head CT 01/22/17 14:36 IMPRESSION: NORMAL BRAIN CT WITHOUT CONTRAST. Status: Image reviewed by me Assessment & Plan - Diagnosis (1) Diffuse lymphadenopathy Is this a current diagnosis for this admission?: Yes Plan: Overall picture concerning for lymphoma, discussed with general surgery, they will be seeing him for excisional biopsy, I have discontinued his ultrasound- guided biopsy for now, added LDH and flow cytometry to labs. - Time Time Spent: Greater than 70 Minutes Critical Time spent with patient: 35 or more minutes
[2017-01-24] MEDS ORDERED: ONDANSETRON HCL INJ/PF 4 MG/2 ML SDV IV PRN (09:30)
[2017-01-24] MEDS: LEVOFLOXACIN 500 MG TABLET PO SCH (10:34)
--- NOTE | 2017-01-24 11:00 | PDOC CONSULTATION ---
Consultation Consult Date: 01/24/17 Attending physician:: SOLANGE GONZALES Consult reason:: Lymphadenopathy requiring biopsy History of Present Illness Admission Date/PCP: 01/22/17 16:33 History of Present Illness: 51-year-old male with increasing lymphadenopathy, he noticed neck lymphadenopathy about 2-3 months ago and has been increasing, ultimately presented with shortness of breath and chest pain, CT of the chest indicated diffuse mediastinal adenopathy, supraclavicular adenopathy, this was followed by neck CT which showed bilateral enlarged lymph nodes largest was close to 4 cm , they are very visible and palpable on physical exam. He does not have a primary tumor noted on CT of the chest or CT of the neck, overall picture concerning for lymphoma. According the patient he has lost approximately 10 pounds; denies history of previous lymphoproliferative disorders. He is a poor historian. [employer] held this morning. He is being kept n.p.o. Past Surgical History Past Surgical History: Reports: None Social History Smoking Status: Current Every Day Smoker Cigarettes Packs Per Day: 1 Last Time Smoked: 01/21/17 Frequency of Alcohol Use: None Hx Recreational Drug Use: No Drugs: None Hx Prescription Drug Abuse: No - Advance Directive Resuscitation Status: Full Code Family History Family History: None Parental Family History Reviewed: Yes Children Family History Reviewed: Yes Sibling(s) Family History Reviewed.: Yes Medication/Allergy Home Medications: No Home Medications 01/22/17 Allergies/Adverse Reactions: Penicillins Allergy (Verified 01/22/17 11:56) Review of Systems Constitutional: PRESENT: other - Patient reports weakness, decreased p.o. intake , fatigue, night sweats and weight loss. Eyes: ABSENT: visual disturbances Ears: ABSENT: hearing changes Physical Exam Vital Signs: Temp Pulse Resp BP Pulse Ox 98.5 F 102 H 22 H 118/85 94 01/24/17 07:44 01/24/17 07:44 01/24/17 07:44 01/24/17 07:44 01/24/17 07:44 Intake & Output 01/23/17 01/24/17 01/25/17 06:59 06:59 06:59 Intake Total 1109 2245 Balance 1109 2245 Weight 66.6 kg 63.2 kg General appearance: PRESENT: thin, other Head exam: PRESENT: normocephalic Eye exam: PRESENT: EOMI Neck exam: PRESENT: full ROM Vascular exam: PRESENT: normal capillary refill GI/Abdominal exam: PRESENT: soft Rectal exam: PRESENT: deferred Musculoskeletal exam: PRESENT: other - Patient has extensive bilateral cervical , supraclavicular, and axillary adenopathy Results Laboratory Results: 01/24/17 05:27 01/24/17 05:27 01/23/17 01/24/17 01/24/17 15:12 05:27 05:27 WBC 10.3 RBC 4.05 L Hgb 11.6 L Hct 36.6 L MCV 91 MCH 28.7 MCHC 31.7 L RDW 14.7 H Plt Count 315 Carbonic Acid 1.44 H HCO3/H2CO3 Ratio 20:1 ABG pH 7.41 ABG pCO2 47.8 H ABG pO2 59.4 L ABG HCO3 29.4 H ABG O2 Saturation 90.7 L ABG Base Excess 4.0 FiO2 6L Sodium 138.6 Potassium 4.4 Chloride 100 Carbon Dioxide 31 H Anion Gap 8 BUN 17 Creatinine 0.57 Est GFR ( Amer) > 60 Est GFR (Non-Af Amer) > 60 Glucose 93 Calcium 9.5 Magnesium 1.8 01/23/17 00:57 Troponin I 0.024 Impressions: Chest X-Ray 01/22/17 12:26 IMPRESSION: Abnormal chest film. Findings may largely be chronic. See description above. Patient appears to be scheduled for CT, which will help to further evaluate the findings. Chest/Abdomen CTA 01/22/17 12:34 IMPRESSION: 1. Positive for pulmonary embolus. 2. Extensive adenopathy, most notable in the mediastinum, supraclavicular tissues and left axilla. Presumably related to lymphoma or other malignancy. Extensive lung changes are present. Some of this is chronic. Superimposed acute infection and/or malignancy also likely. Soft Tissue Neck CT 01/22/17 12:34 IMPRESSION: 1. Extensive neck adenopathy as above. Presumably related to lymphoma or other malignancy. Please see separately dictated CT chest same date. Head CT 01/22/17 14:36 IMPRESSION: NORMAL BRAIN CT WITHOUT CONTRAST. Assessment & Plan - Diagnosis (1) Diffuse lymphadenopathy Is this a current diagnosis for this admission?: Yes Plan: As demonstrated by clinical exam findings, and confirmed by cervical and thoracic CT imaging, patient has lymph proliferative disorder of undiagnosed etiology. We will set 45 minutes, main operating room. I spoke to the patient and explained the intended procedure, as well as wrist benefits and alternatives. I believe he understands and agrees to proceed. (3) Pulmonary embolism Qualifiers: Pulmonary embolism type: other Chronicity: acute Acute cor pulmonale presence: without acute cor pulmonale Qualified Code(s): I26.99 - Other pulmonary embolism without acute cor pulmonale Is this a current diagnosis for this admission?: Yes Plan: Will hold Lovenox for now; patient's saturations appear above 94% on nasal cannula. He is able to lay flat. I think he could tolerate LMAC anesthesia. - Time Time Spent: 30 to 50 Minutes Critical Time spent with patient: Less than 15 minutes
--- NOTE | 2017-01-24 12:29 | RADIOLOGY REPORT (SQ) ---
EXAM DESCRIPTION: VENOUS BILATERAL LOWER COMPLETED DATE/TIME: 01/24/2017 10:54 am REASON FOR STUDY: pulmonary embolus COMPARISON: None. TECHNIQUE: Dynamic and static malik scale and color images acquired of both lower extremity venous sy stems. Selected spectral images acquired with additional compression and augmentation maneuvers. Imag es stored on PACS. LIMITATIONS: None. FINDINGS: RIGHT LEG COMMON FEMORAL AND FEMORAL: Normal phasicity, compression and augmentation. No visualized echogenic m aterial on malik scale. No defects on color images. POPLITEAL: Normal compression and augmentation. No visualized echogenic material on malik scale. No de fects on color images. CALF VESSELS: Normal compression and augmentation. No visualized echogenic material on malik scale. No defects on color image. GSV AND SSV: Normal compression. No visualized echogenic material on malik scale. No defects on color images. ANY DEEP VENOUS INSUFFICIENCY: Not evaluated. ANY EVIDENCE OF POPLITEAL CYST: No. OTHER: No other significant finding. LEFT LEG COMMON FEMORAL AND FEMORAL: Normal phasicity, compression and augmentation. No visualized echogenic m aterial on malik scale. No defects on color images. POPLITEAL: Normal compression and augmentation. No visualized echogenic material on malik scale. No de fects on color images. CALF VESSELS: Normal compression and augmentation. No visualized echogenic material on malik scale. No defects on color images. GSV AND SSV: Normal compression. No visualized echogenic material on malik scale. No defects on color images. ANY DEEP VENOUS INSUFFICIENCY: Not evaluated. ANY EVIDENCE POPLITEAL CYST: No. OTHER: No other significant finding. IMPRESSION: NO EVIDENCE DVT OR SVT IN EITHER LEG. TECHNICAL DOCUMENTATION: JOB ID: [id number] [employer]- All Rights Reserved
[2017-01-24] MEDS ORDERED: METHYLENE BLUE 50 MG/10 ML AMPULE ONE (15:18)
[2017-01-24] MEDS ORDERED: MICROFIBRILLAR COLLAGEN 1 GM PACK ONE (15:18)
[2017-01-24] MEDS ORDERED: LIDOCAINE 1%/EPINEPHRINE INJ 20 ML VIAL ONE (15:18)
[2017-01-24] MEDS ORDERED: FENTANYL CITRATE INJ/PF 100 MCG/2 ML AMPUL ONE (15:22)
[2017-01-24] MEDS ORDERED: LIDOCAINE 2% INJ-PF (20 MG/ML) 10 ML AMPUL ONE (15:22)
[2017-01-24] MEDS ORDERED: MIDAZOLAM 2 MG/2 ML INJ ONE (15:23)
[2017-01-24] MEDS ORDERED: PROPOFOL INJ 200 MG/20 ML VIAL IV ONE (15:23)
[2017-01-24] MEDS ORDERED: LIDOCAINE 1%/EPINEPHRINE INJ 20 ML VIAL INJ ONE (15:45)
--- NOTE | 2017-01-24 16:09 | Operative Report ---
Operative Report DATE OF SURGERY: 01/24/17 PREOPERATIVE DIAGNOSIS: Lymphadenopathy, extensive. Acute pulmonary emboli POSTOPERATIVE DIAGNOSIS: Same OPERATION: Open excisional biopsy right axilla lymph node SURGEON: MACKENZIE BAHENA ANESTHESIA: LMAC TISSUE REMOVED OR ALTERED: 1 lymph node from right axilla COMPLICATIONS: None ESTIMATED BLOOD LOSS: scant INTRAOPERATIVE FINDINGS: see below PROCEDURE: Patient's right axilla was marked. Patient taken the operating room where LMAC anesthesia was induced. Right arm was abducted and the right axilla prepped and draped in sterile fashion. Surgical plan and surgical timeout conducted The skin was anesthetized with 1% lidocaine with epinephrine. A small trans- axillary incision made approximately 2 and half centimeters in length. The well -defined palpable abnormal lymph node approximately 2 cm in diameter was excised in its entirety. It was sent to pathology fresh for cytologic analysis. Hemostasis was excellent. Wound closed with 2-0 Vicryl benzoin and Steri-Strips Postop procedure well, taken recovery in stable condition.
[2017-01-24] MEDS ORDERED: FENTANYL CITRATE INJ/PF 100 MCG/2 ML AMPUL IV PRN ×3 (16:10)
[2017-01-24] MEDS ORDERED: MORPHINE SULFATE 10 MG/ML INJ IV PRN (16:10)
[2017-01-24] MEDS ORDERED: PROMETHAZINE HCL INJ 25 MG/1 ML VIAL IV PRN ×2 (16:10)
[2017-01-24] MEDS ORDERED: MEPERIDINE HCL/PF INJ 25 MG/1 ML DISP.SYRIN IV PRN (16:10)
[2017-01-24] MEDS ORDERED: OXYCODONE-ACETAMINOPHEN 5-325 MG TABLET PO PRN ×2 (16:10)
[2017-01-24] MEDS ORDERED: DIPHENHYDRAMINE HCL 50 MG/ML VIAL IV PRN (16:10)
--- NOTE | 2017-01-24 18:01 | PDOC PROGRESS REPORT ---
Subjective Progress Note for:: 01/24/17 Subjective:: this is a follow-up visit for pulmonary embolism and diffuse lymphadenopathy. Patient was seen at the bedside this morning and States that he did ok overnight. He denies any current chest pain or worsening shortness of breath. We did rediscuss his potential diagnoses. Physical Exam Vital Signs: Temp Pulse Resp BP Pulse Ox 98.5 F 102 H 22 H 118/85 94 01/24/17 07:44 01/24/17 07:44 01/24/17 07:44 01/24/17 07:44 01/24/17 07:44 Intake & Output 01/23/17 01/24/17 01/25/17 06:59 06:59 06:59 Intake Total 1109 2245 Balance 1109 2245 Weight 66.6 kg 63.2 kg GENERAL: This is a well-developed and nourished appearing white male resting in bed in no acute respiratory distress today. HEENT: bilateral submandibular lymphadenopathy HEART: sinus rhythm on telemetry LUNGS: equal rise and fall of the chest. ABDOMEN: Nondistended EXTREMETIES: No clubbing, cyanosis or edema. NEURO: Awake, alert and oriented 3. Skin: Warm, dry normal color Results Laboratory Results: 01/24/17 05:27 01/24/17 05:27 01/23/17 01/24/17 01/24/17 15:12 05:27 05:27 WBC 10.3 RBC 4.05 L Hgb 11.6 L Hct 36.6 L MCV 91 MCH 28.7 MCHC 31.7 L RDW 14.7 H Plt Count 315 Carbonic Acid 1.44 H HCO3/H2CO3 Ratio 20:1 ABG pH 7.41 ABG pCO2 47.8 H ABG pO2 59.4 L ABG HCO3 29.4 H ABG O2 Saturation 90.7 L ABG Base Excess 4.0 FiO2 6L Sodium 138.6 Potassium 4.4 Chloride 100 Carbon Dioxide 31 H Anion Gap 8 BUN 17 Creatinine 0.57 Est GFR ( Amer) > 60 Est GFR (Non-Af Amer) > 60 Glucose 93 Calcium 9.5 Magnesium 1.8 01/23/17 00:57 Troponin I 0.024 Impressions: Chest X-Ray 01/22/17 12:26 IMPRESSION: Abnormal chest film. Findings may largely be chronic. See description above. Patient appears to be scheduled for CT, which will help to further evaluate the findings. Chest/Abdomen CTA 01/22/17 12:34 IMPRESSION: 1. Positive for pulmonary embolus. 2. Extensive adenopathy, most notable in the mediastinum, supraclavicular tissues and left axilla. Presumably related to lymphoma or other malignancy. Extensive lung changes are present. Some of this is chronic. Superimposed acute infection and/or malignancy also likely. Soft Tissue Neck CT 01/22/17 12:34 IMPRESSION: 1. Extensive neck adenopathy as above. Presumably related to lymphoma or other malignancy. Please see separately dictated CT chest same date. Head CT 01/22/17 14:36 IMPRESSION: NORMAL BRAIN CT WITHOUT CONTRAST. Assessment & Plan - Diagnosis (1) Acute hypoxemic respiratory failure Plan: Respiratory failure secondary to underlying PE and what is most likely lymphoma. Continue bilevel Pap As needed. continue As needed nebulizer treatments. Treat underlying conditions. overall the patient does look better today. He is currently on 6 L by nasal cannula. Wean as tolerated. (2) Pulmonary embolism Qualifiers: Pulmonary embolism type: other Chronicity: acute Acute cor pulmonale presence: without acute cor pulmonale Qualified Code(s): I26.99 - Other pulmonary embolism without acute cor pulmonale Plan: PE is likely secondary to underlying lymphoma. Continue Lovenox at therapeutic doses of the procedure. begin oral anticoagulation tomorrow. (3) Diffuse lymphadenopathy Is this a current diagnosis for this admission?: Yes Plan: The patient has diffuse lymphadenopathy. At this point I suspect it is some sort of underlying lymphoma. Patient will have an excisional biopsy done today. HIV negative. Dr. Fagan has already seen this patient and we have discussed this patient already today. (4) Nicotine dependence Plan: Smoking cessation/E cigarette cessation is advised. - Time Time Spent with patient: 15-24 minutes - Inpatient Certification Medical Necessity: Need Close Monitoring Due to Risk of Patient Decompensation
[2017-01-24 20:38] LABS: APPEARANCE,URINE CLEAR; BILIRUBIN,URINE NEGATIVE (NEGATIVE); GLUCOSE, URINE NEGATIVE (NEGATIVE); KETONES,URINE NEGATIVE (NEGATIVE); LEUKOCYTE ESTERASE,URINE NEGATIVE (NEGATIVE); NITRITE,URINE NEGATIVE (NEGATIVE); PROTEIN,URINE NEGATIVE (NEGATIVE); URINE SPECIFIC GRAVITY 1.014; UROBILINOGEN,URINE NEGATIVE mg/dL (<2.0)
[2017-01-24] MEDS: ENOXAPARIN SODIUM INJ 80 MG/0.8 ML DISP.SYRIN SUBCUT SCH (23:06)
[2017-01-25 04:59] LABS: ABSOLUTE EOSINOPHILS # (AUTO) 0.1 10^3/uL (0.0-0.6); ABSOLUTE LYMPHOCYTES (AUTO) 0.5 10^3/uL (0.5-4.7); ABSOLUTE MONOCYTES (AUTO) 0.7 10^3/uL (0.1-1.4); ABSOLUTE NEUT (AUTO) 7.8 10^3/uL (1.7-8.2); BASOPHILS % (AUTO) 0.4 % (0-2); EOSINOPHILS % (AUTO) 1.6 % (0-6); HEMATOCRIT 36.9 % (37.9-51.0); HGB HCT DIFFERENCE -0.9; LYMPHOCYTES % (AUTO) 5.7 % (13-45); MEAN CORPUSCULAR HEMOGLOBIN 29.4 pg (27.0-33.4); MEAN CORPUSCULAR HGB CONC 32.6 g/dL (32.0-36.0); MEAN CORPUSCULAR VOLUME 90 fl (80-97); RED BLOOD COUNT 4.09 10^6/uL (4.35-5.55); RED CELL DISTRIBUTION WIDTH 14.6 % (11.5-14.0); SEGMENTED NEUTROPHILS % (AUTO) 84.3 % (42-78); WHITE BLOOD COUNT 9.2 10^3/uL (4.0-10.5)
[2017-01-25 05:09] LABS: ANION GAP 8 (5-19); BLOOD UREA NITROGEN 19 mg/dL (7-20); CALCIUM 9.4 mg/dL (8.4-10.2); CARBON DIOXIDE 32 mmol/L (22-30); CHLORIDE 98 mmol/L (98-107); CREATININE RESULT 0.59 mg/dL (0.52-1.25); GLUCOSE 86 mg/dL (75-110); MAGNESIUM 1.9 mg/dL (1.6-2.3); POTASSIUM 4.2 mmol/L (3.6-5.0); SODIUM 137.6 mmol/L (137-145)
--- NOTE | 2017-01-25 09:29 | PDOC PROGRESS REPORT ---
Subjective Progress Note for:: 01/25/17 Subjective:: Patient seems to be doing a little bit better today, still on 6 L of O2 Physical Exam Vital Signs: Temp Pulse Resp BP Pulse Ox 97.6 F 111 H 20 111/83 93 01/25/17 07:17 01/25/17 07:17 01/25/17 07:17 01/25/17 07:17 01/25/17 07:17 Intake & Output 01/24/17 01/25/17 01/26/17 06:59 06:59 06:59 Intake Total 2245 1459 Output Total 302 Balance 2245 1157 Weight 63.2 kg 62.1 kg General appearance: PRESENT: no acute distress, well-developed, well-nourished Head exam: PRESENT: atraumatic, normocephalic Eye exam: PRESENT: conjunctiva pink, EOMI, PERRLA. ABSENT: scleral icterus Ear exam: PRESENT: normal external ear exam Mouth exam: PRESENT: moist, tongue midline Neck exam: ABSENT: carotid bruit, JVD, lymphadenopathy, thyromegaly Respiratory exam: PRESENT: clear to auscultation [place]. ABSENT: rales, rhonchi, wheezes Cardiovascular exam: PRESENT: RRR. ABSENT: diastolic murmur, rubs, systolic murmur Pulses: PRESENT: normal dorsalis pedis pul Vascular exam: PRESENT: normal capillary refill GI/Abdominal exam: PRESENT: normal bowel sounds, soft. ABSENT: distended, guarding, mass, organolmegaly, rebound, tenderness Rectal exam: PRESENT: deferred Extremities exam: PRESENT: full ROM. ABSENT: calf tenderness, clubbing, pedal edema Neurological exam: PRESENT: alert, awake, oriented to person, oriented to place , oriented to time, oriented to situation, CN II-XII grossly intact. ABSENT: motor sensory deficit Psychiatric exam: PRESENT: appropriate affect, normal mood. ABSENT: homicidal ideation, suicidal ideation Skin exam: PRESENT: dry, intact, warm. ABSENT: cyanosis, rash Results Laboratory Results: 01/25/17 04:35 01/25/17 04:35 01/24/17 01/25/17 01/25/17 18:30 04:35 04:35 WBC 9.2 RBC 4.09 L Hgb 12.0 L Hct 36.9 L MCV 90 MCH 29.4 MCHC 32.6 RDW 14.6 H Plt Count 313 Seg Neutrophils % 84.3 H Lymphocytes % 5.7 L Monocytes % 8.0 Eosinophils % 1.6 Basophils % 0.4 Absolute Neutrophils 7.8 Absolute Lymphocytes 0.5 Absolute Monocytes 0.7 Absolute Eosinophils 0.1 Absolute Basophils 0.0 Sodium 137.6 Potassium 4.2 Chloride 98 Carbon Dioxide 32 H Anion Gap 8 BUN 19 Creatinine 0.59 Est GFR ( Amer) > 60 Est GFR (Non-Af Amer) > 60 Glucose 86 Calcium 9.4 Magnesium 1.9 Urine Color YELLOW Urine Appearance CLEAR Urine pH 7.0 Ur Specific [place] 1.014 Urine Protein NEGATIVE Urine Glucose (UA) NEGATIVE Urine Ketones NEGATIVE Urine Blood SMALL H Urine Nitrite NEGATIVE Ur Leukocyte Esterase NEGATIVE Urine WBC (Auto) 1 Urine RBC (Auto) 9 01/23/17 00:57 Troponin I 0.024 Impressions: Chest X-Ray 01/22/17 12:26 IMPRESSION: Abnormal chest film. Findings may largely be chronic. See description above. Patient appears to be scheduled for CT, which will help to further evaluate the findings. Chest/Abdomen CTA 01/22/17 12:34 IMPRESSION: 1. Positive for pulmonary embolus. 2. Extensive adenopathy, most notable in the mediastinum, supraclavicular tissues and left axilla. Presumably related to lymphoma or other malignancy. Extensive lung changes are present. Some of this is chronic. Superimposed acute infection and/or malignancy also likely. Soft Tissue Neck CT 01/22/17 12:34 IMPRESSION: 1. Extensive neck adenopathy as above. Presumably related to lymphoma or other malignancy. Please see separately dictated CT chest same date. Head CT 01/22/17 14:36 IMPRESSION: NORMAL BRAIN CT WITHOUT CONTRAST. Venous Doppler Study 01/24/17 00:00 IMPRESSION: NO EVIDENCE DVT OR SVT IN EITHER LEG. Assessment & Plan - Diagnosis (1) Diffuse lymphadenopathy Is this a current diagnosis for this admission?: Yes Plan: Overall picture very concerning for lymphoma, we have gotten the biopsy done already, the next step now would be to get him ready for discharge home. Home O2 eval pending. (2) Pulmonary embolism Qualifiers: Pulmonary embolism type: other Chronicity: acute Acute cor pulmonale presence: without acute cor pulmonale Qualified Code(s): I26.99 - Other pulmonary embolism without acute cor pulmonale Is this a current diagnosis for this admission?: Yes Plan: manager government to Xarelto today, we will get patient Xarelto samples - Time Time Spent with patient: 25-34 minutes Critical Time spent with patient: 25-34 minutes
[2017-01-25] MEDS: ACETAMINOPHEN 325 MG TABLET PO PRN ×2 (10:29→17:15)
[2017-01-25] MEDS: LEVOFLOXACIN 500 MG TABLET PO SCH (10:29)
[2017-01-25] MEDS: RIVAROXABAN 15 MG TABLET PO SCH ×2 (10:30→21:42)
[2017-01-25] MEDS ORDERED: ALBUTEROL SULFATE HFA (90 MCG/PUFF) 200 PUFF/8.5 GM MDI IH PRN (11:27)
[2017-01-25] MEDS ORDERED: TIOTROPIUM BROMIDE DPI 5 CAP/KIT (18 MCG/CAP) IH ONE (13:00)
[2017-01-25] MEDS ORDERED: HYDROCODONE/ACETAMINOPHEN 5-325 MG TABLET PO PRN (18:23)
[2017-01-25] MEDS ORDERED: CYCLOBENZAPRINE HCL 10 MG TABLET PO PRN (18:23)
--- NOTE | 2017-01-25 18:26 | PDOC PROGRESS REPORT ---
Subjective Progress Note for:: 01/25/17 Subjective:: Patient reports he is feeling significantly better. He does report he still has some shortness of breath. He denies any chest pain. Patient denies chest pain, abdominal pain, nausea, vomiting, fevers, chills, diarrhea, constipation, headache, new onset weakness. Physical Exam Vital Signs: Temp Pulse Resp BP Pulse Ox 97.3 F 103 H 20 101/62 90 L 01/25/17 15:16 01/25/17 15:16 01/25/17 15:16 01/25/17 15:16 01/25/17 15:16 Intake & Output 01/24/17 01/25/17 01/26/17 06:59 06:59 06:59 Intake Total 2245 1459 Output Total 302 Balance 2245 1157 Weight 63.2 kg 62.1 kg Exam: General: Awake alert and oriented x3, no acute respiratory distress HEENT: AT/NC, PERRL, EOMI, oropharynx is moist, pink, no scleral icterus, no conjunctival injection Neck: No JVD, visible adenopathy, trachea midline Chest: Clear to auscultation bilaterally, no wheezes rhonchi or rales CV: Regular rate and rhythm, normal S1 and S2, no murmur, rub, or gallop Abdomen: Soft, nontender to palpation, nondistended, active bowel sounds; no rebound, rigidity, or guarding Extremities: No cyanosis, clubbing or edema Neuro: Cranial nerves II through XII are grossly intact without focal deficits; awake alert and oriented x3 Psych: Normal mood and affect Results Laboratory Results: 01/25/17 04:35 01/25/17 04:35 01/24/17 01/25/17 01/25/17 18:30 04:35 04:35 WBC 9.2 RBC 4.09 L Hgb 12.0 L Hct 36.9 L MCV 90 MCH 29.4 MCHC 32.6 RDW 14.6 H Plt Count 313 Seg Neutrophils % 84.3 H Lymphocytes % 5.7 L Monocytes % 8.0 Eosinophils % 1.6 Basophils % 0.4 Absolute Neutrophils 7.8 Absolute Lymphocytes 0.5 Absolute Monocytes 0.7 Absolute Eosinophils 0.1 Absolute Basophils 0.0 Sodium 137.6 Potassium 4.2 Chloride 98 Carbon Dioxide 32 H Anion Gap 8 BUN 19 Creatinine 0.59 Est GFR ( Amer) > 60 Est GFR (Non-Af Amer) > 60 Glucose 86 Calcium 9.4 Magnesium 1.9 Urine Color YELLOW Urine Appearance CLEAR Urine pH 7.0 Ur Specific [place] 1.014 Urine Protein NEGATIVE Urine Glucose (UA) NEGATIVE Urine Ketones NEGATIVE Urine Blood SMALL H Urine Nitrite NEGATIVE Ur Leukocyte Esterase NEGATIVE Urine WBC (Auto) 1 Urine RBC (Auto) 9 01/23/17 00:57 Troponin I 0.024 Impressions: Chest X-Ray 01/22/17 12:26 IMPRESSION: Abnormal chest film. Findings may largely be chronic. See description above. Patient appears to be scheduled for CT, which will help to further evaluate the findings. Chest/Abdomen CTA 01/22/17 12:34 IMPRESSION: 1. Positive for pulmonary embolus. 2. Extensive adenopathy, most notable in the mediastinum, supraclavicular tissues and left axilla. Presumably related to lymphoma or other malignancy. Extensive lung changes are present. Some of this is chronic. Superimposed acute infection and/or malignancy also likely. Soft Tissue Neck CT 01/22/17 12:34 IMPRESSION: 1. Extensive neck adenopathy as above. Presumably related to lymphoma or other malignancy. Please see separately dictated CT chest same date. Head CT 01/22/17 14:36 IMPRESSION: NORMAL BRAIN CT WITHOUT CONTRAST. Venous Doppler Study 01/24/17 00:00 IMPRESSION: NO EVIDENCE DVT OR SVT IN EITHER LEG. Assessment & Plan - Diagnosis (1) Pulmonary embolism Qualifiers: Pulmonary embolism type: other Chronicity: acute Acute cor pulmonale presence: without acute cor pulmonale Qualified Code(s): I26.99 - Other pulmonary embolism without acute cor pulmonale Is this a current diagnosis for this admission?: Yes Plan: Patient transition to Xarelto. Will attempt to wean oxygen to say today and set this up for home and may be discharged in the a.m. (2) Acute hypoxemic respiratory failure Is this a current diagnosis for this admission?: Yes Plan: Secondary to underlying PE (3) Diffuse lymphadenopathy Is this a current diagnosis for this admission?: Yes Plan: Status post biopsy for probable lymphoma. Patient may follow-up with oncology as an outpatient for the results of this biopsy. (4) Nicotine dependence Qualifiers: Nicotine product type: cigarettes Substance use status: unspecified nicotine-induced disorder Qualified Code(s): F17.219 - Nicotine dependence, cigarettes, with unspecified nicotine-induced disorders Is this a current diagnosis for this admission?: Yes Plan: Nicotine patch
[2017-01-26 05:02] LABS: HEMATOCRIT 37.6 % (37.9-51.0); HEMOGLOBIN 11.9 g/dL (13.5-17.0); HGB HCT DIFFERENCE -1.9; MEAN CORPUSCULAR HEMOGLOBIN 28.6 pg (27.0-33.4); MEAN CORPUSCULAR HGB CONC 31.8 g/dL (32.0-36.0); MEAN CORPUSCULAR VOLUME 90 fl (80-97); RED BLOOD COUNT 4.18 10^6/uL (4.35-5.55); RED CELL DISTRIBUTION WIDTH 14.4 % (11.5-14.0); WHITE BLOOD COUNT 7.8 10^3/uL (4.0-10.5)
--- NOTE | 2017-01-26 09:10 | PDOC PROGRESS REPORT ---
Subjective Progress Note for:: 01/26/17 Subjective:: No acute events overnight, o2 weened to 3L, but pt not really left room. Physical Exam Vital Signs: Temp Pulse Resp BP Pulse Ox 97.7 F 121 H 18 114/85 92 01/26/17 07:16 01/26/17 07:16 01/26/17 07:16 01/26/17 07:16 01/26/17 07:16 Intake & Output 01/25/17 01/26/17 01/27/17 06:59 06:59 06:59 Intake Total 1459 1560 Output Total 302 Balance 1157 1560 Weight 62.1 kg 62.1 kg General appearance: PRESENT: no acute distress, well-developed, well-nourished Head exam: PRESENT: atraumatic, normocephalic Eye exam: PRESENT: conjunctiva pink, EOMI, PERRLA. ABSENT: scleral icterus Ear exam: PRESENT: normal external ear exam Mouth exam: PRESENT: moist, tongue midline Neck exam: ABSENT: carotid bruit, JVD, lymphadenopathy, thyromegaly Respiratory exam: PRESENT: clear to auscultation [place]. ABSENT: rales, rhonchi, wheezes Cardiovascular exam: PRESENT: RRR. ABSENT: diastolic murmur, rubs, systolic murmur Pulses: PRESENT: normal dorsalis pedis pul Vascular exam: PRESENT: normal capillary refill GI/Abdominal exam: PRESENT: normal bowel sounds, soft. ABSENT: distended, guarding, mass, organolmegaly, rebound, tenderness Rectal exam: PRESENT: deferred Extremities exam: PRESENT: full ROM. ABSENT: calf tenderness, clubbing, pedal edema Neurological exam: PRESENT: alert, awake, oriented to person, oriented to place , oriented to time, oriented to situation, CN II-XII grossly intact. ABSENT: motor sensory deficit Psychiatric exam: PRESENT: appropriate affect, normal mood. ABSENT: homicidal ideation, suicidal ideation Skin exam: PRESENT: dry, intact, warm. ABSENT: cyanosis, rash Results Laboratory Results: 01/26/17 04:33 01/25/17 04:35 01/26/17 04:33 WBC 7.8 RBC 4.18 L Hgb 11.9 L Hct 37.6 L MCV 90 MCH 28.6 MCHC 31.8 L RDW 14.4 H Plt Count 315 01/23/17 00:57 Troponin I 0.024 Impressions: Chest X-Ray 01/22/17 12:26 IMPRESSION: Abnormal chest film. Findings may largely be chronic. See description above. Patient appears to be scheduled for CT, which will help to further evaluate the findings. Chest/Abdomen CTA 01/22/17 12:34 IMPRESSION: 1. Positive for pulmonary embolus. 2. Extensive adenopathy, most notable in the mediastinum, supraclavicular tissues and left axilla. Presumably related to lymphoma or other malignancy. Extensive lung changes are present. Some of this is chronic. Superimposed acute infection and/or malignancy also likely. Soft Tissue Neck CT 01/22/17 12:34 IMPRESSION: 1. Extensive neck adenopathy as above. Presumably related to lymphoma or other malignancy. Please see separately dictated CT chest same date. Head CT 01/22/17 14:36 IMPRESSION: NORMAL BRAIN CT WITHOUT CONTRAST. Venous Doppler Study 01/24/17 00:00 IMPRESSION: NO EVIDENCE DVT OR SVT IN EITHER LEG. Assessment & Plan - Diagnosis (1) Diffuse lymphadenopathy Is this a current diagnosis for this admission?: Yes Plan: Concerning for primary lymphoma, awaiting bx results (2) Pulmonary embolism Qualifiers: Pulmonary embolism type: other Chronicity: acute Acute cor pulmonale presence: without acute cor pulmonale Qualified Code(s): I26.99 - Other pulmonary embolism without acute cor pulmonale Is this a current diagnosis for this admission?: Yes Plan: Transition to xarelto, can d/c w/ this. Asked nursing to walk him to make sure he can do that before d/c home. - Time Time Spent with patient: 25-34 minutes Critical Time spent with patient: 25-34 minutes
[2017-01-26] MEDS ORDERED: TIOTROPIUM BROMIDE DPI 5 CAP/KIT (18 MCG/CAP) IH SCH (10:00)
[2017-01-26] MEDS: LEVOFLOXACIN 500 MG TABLET PO SCH (10:35)
[2017-01-26] MEDS: RIVAROXABAN 15 MG TABLET PO SCH (10:35)
[2017-01-26 13:18] VITALS: BP 120/84
--- NOTE | 2017-01-26 18:55 | PDOC DISCHARGE SUMMARY ---
General - Admit/Disc Date/PCP Admission Date/Primary Care Provider: 01/22/17 16:33 Discharge Date: 01/26/17 - Discharge Diagnosis (1) Pulmonary embolism Is this a current diagnosis for this admission?: Yes (2) Acute hypoxemic respiratory failure Is this a current diagnosis for this admission?: Yes (3) Adenocarcinoma Is this a current diagnosis for this admission?: Yes (4) Diffuse lymphadenopathy Is this a current diagnosis for this admission?: Yes (5) Nicotine dependence Is this a current diagnosis for this admission?: Yes - Additional Information Resuscitation Status: Full Code Discharge Diet: Regular Discharge Activity: Activity As Tolerated Home Medications: Albuterol Sulfate [Proair HFA Inhalation Aerosol 8.5 gm MDI] 2 puff IH Q4HP PRN #1 hfa.aer.[id number] 01/26/17 Cyclobenzaprine HCl [Flexeril 10 mg Tablet] 10 mg PO Q8HP PRN #10 tablet Hydrocodone/Acetaminophen [[place] 5-325 mg Tablet] 1 tab PO Q6HP PRN #10 tablet 01/26/17 Rivaroxaban [Xarelto 15 mg Tablet] 15 mg PO Q12 #42 tablet 01/26/17 Tiotropium [place] [Spiriva Handihaler 5 Cap/Kit (18 Mcg/Cap)] 1 cap IH DAILY # 1 kit 01/26/17 History of Present Illness History of Present Illness: BIMAL YOUNG is a 51 year old male with no significant past medical history who presents to the emergency room with complaints of shortness of breath. According to the patient he just moved into the area a couple of months ago. He states that before he moved he noticed some nodules near his collarbone. He states that they have been getting larger over the last 2-3 months. He has not sought any medical intervention until today when he presented to urgent care. On presentation there he complained of progressive shortness of breath and enlargement of these nodules. He was redirected here to the emergency room. In our ED the patient was found to have an oxygen saturation of 85% on nasal cannula and down to 83% on room air. ABG was obtained which showed PO2 of 46% on room air. The patient underwent CT scan of the chest which is positive for pulmonary embolus and extensive adenopathy most notable in the mediastinum supraclavicular tissues and left axilla. Presumably this is related to lymphoma or malignancy. Superimposed acute infection and/or malignancy is also likely. CT of the neck showed similar findings. CT of the head was also done which showed no acute findings. The patient was started on 2 L by nasal cannula oxygen but did not have great improvement in his oxygen saturation. He was changed over to bilevel Pap and his O2 sats increased to 98%. The patient was started on levofloxacin secondary to CT findings. In addition to this he was given therapeutic dose of Lovenox down in the emergency room. In my discussion with the patient he denies any fevers or chills. He does have chest pain especially with breathing and obvious shortness of breath. He denies any nausea vomiting but does however admit to about 10 pound weight loss. He is unclear over what period of time this is taken place but notes that his weight was down by about 10 pounds at the urgent care facility. The patient does not have a primary care physician. Hospital Course Hospital Course: Patient was found to have acute pulmonary embolus and was placed on Lovenox. Oncology was consulted due to his quite obvious diffuse lymphadenopathy and new onset of acute pulmonary emboli. Surgery was consulted and the lymph node biopsy was obtained. On day of discharge, this was read out as adenocarcinoma favoring a lung primary for pathology. Patient's oxygenation slowly improved and his oxygen need did decrease slightly as he progressed. Patient underwent venous Doppler on 01/24/2017 which did not reveal any SVT or DVT. Patient underwent echocardiogram which was pending read at time of discharge. Patient still continue to have a significant oxygen requirement both at baseline and with ambulation and home oxygen was set up for patient as well as disabled vidhya and [facility] in addition to prescription card due to patient's lack of insurance. Patient was also referred to Medicaid through [facility]. Patient was discharged home with his mother in stable condition. He is to follow-up with oncology as an outpatient to discuss the results of his biopsy. Physical Exam Vital Signs: Temp Pulse Resp BP Pulse Ox 97.7 F 121 H 18 120/84 93 01/26/17 13:07 01/26/17 13:07 01/26/17 13:07 01/26/17 13:07 01/26/17 13:07 Pulse Oximeter Ambulatory Start: 01/25/17 11: 26 Freq: RTDAILY Status: Discharge Document 01/26/17 08:00 LDA (Rec: 01/26/17 10:24 LDA [email or web address]) Exercise Oximetry Treatment Ambulating SpO2 Charge Now No Other nurse walked pt. Intake & Output 01/25/17 01/26/17 01/27/17 06:59 06:59 06:59 Intake Total 1459 1560 Output Total 302 Balance 1157 1560 Weight 62.1 kg 62.1 kg Exam: General: Awake alert and oriented x3, no acute respiratory distress HEENT: AT/NC, PERRL, EOMI, oropharynx is moist, pink, no scleral icterus, no conjunctival injection Neck: No JVD, visible adenopathy, trachea midline Chest: Clear to auscultation bilaterally, no wheezes rhonchi or rales CV: Regular rate and rhythm, normal S1 and S2, no murmur, rub, or gallop Abdomen: Soft, nontender to palpation, nondistended, active bowel sounds; no rebound, rigidity, or guarding Extremities: No cyanosis, clubbing or edema Neuro: Cranial nerves II through XII are grossly intact without focal deficits; awake alert and oriented x3 Psych: Normal mood and affect Results Laboratory Results: 01/26/17 04:33 01/25/17 04:35 01/26/17 04:33 WBC 7.8 RBC 4.18 L Hgb 11.9 L Hct 37.6 L MCV 90 MCH 28.6 MCHC 31.8 L RDW 14.4 H Plt Count 315 01/23/17 00:57 Troponin I 0.024 Impressions: Chest X-Ray 01/22/17 12:26 IMPRESSION: Abnormal chest film. Findings may largely be chronic. See description above. Patient appears to be scheduled for CT, which will help to further evaluate the findings. Chest/Abdomen CTA 01/22/17 12:34 IMPRESSION: 1. Positive for pulmonary embolus. 2. Extensive adenopathy, most notable in the mediastinum, supraclavicular tissues and left axilla. Presumably related to lymphoma or other malignancy. Extensive lung changes are present. Some of this is chronic. Superimposed acute infection and/or malignancy also likely. Soft Tissue Neck CT 01/22/17 12:34 IMPRESSION: 1. Extensive neck adenopathy as above. Presumably related to lymphoma or other malignancy. Please see separately dictated CT chest same date. Head CT 01/22/17 14:36 IMPRESSION: NORMAL BRAIN CT WITHOUT CONTRAST. Venous Doppler Study 01/24/17 00:00 IMPRESSION: NO EVIDENCE DVT OR SVT IN EITHER LEG. Qualifiers PATEINT BEING DISCHARGED WITH ANY OF THE FOLLOWING DIAGNOSIS?: VTE (PE or DVT) VTE patient discharged on overlapping Therapy?: No Reason(s) for not prescribing Overlap Therapy:: Not indicated - On Xarelto Plan Time Spent: Greater than 30 Minutes
--- NOTE | 2017-01-28 09:57 | XCELERA REPORT ---
[address] [address] Transthoracic Echocardiogram Report Name: BIMAL YOUNG Age: 51 yrs Gender: Male : 1965 Patient Status: Inpatient Patient Location: [address] [place] [address] Study Date: 01/24/2017 09:03 AM Height: 72 in Weight: 146 lb BSA: 1.9 m2 Procedure: A two-dimensional transthoracic echocardiogram with color flow and Doppler was performed. Study Quality: Fair. Reason For Study: Acute PE History: Acute PE. Ordering Physician: PRESTON VOSS Performed By: Donaldo Serrato Interpretation Summary The left ventricle is mildly dilated. There is mild asymmetric left ventricular hypertrophy. No 'RAJWINDER' or LVOT obstruction.Hence no IHSS. LV EF is 30% Left ventricular systolic function is severely reduced. Doppler measurements suggest impaired left ventricular relaxation, which is associated with grade I/IV or mild diastolic dysfunction There is severe global hypokinesis of the left ventricle. There is no thrombus. The right ventricle is grossly normal size. The right ventricle is not well visualized secondary to technical limitations The right atrium is normal. The left atrial size is normal. The interatrial septum is intact with no evidence for an atrial septal defect. There is no evidence of mitral valve prolapse. There is no mitral valve stenosis. There is a mild amount of mitral regurgitation There is no aortic valvular vegetation. There is no aortic valve stenosis There is no LVOT obstruction. No aortic regurgitation is present. There is no tricuspid stenosis. There is a trace amount of tricuspid regurgitation There is mild pulmonary hypertension by echo RVSP is 33 to 38 mm of Hg , with RA mean of 10 to 15. The aortic root is mildly dilated There is no pericardial effusion. MMode/2D Measurements & Calculations RVDd: 2.6 cm LVIDd: 5.7 cm FS: 11.6 % Ao root diam: IVSd: 1.3 cm LVIDs: 5.1 cm EDV(Teich): 3.9 cm LVPWd: 1.2 cm 162.4 ml Ao root area: ESV(Teich): 122.0 ml 11.8 cm2 EF(Teich): 24.9 % LA dimension: 2.7 cm LVLd ap4: 9.2 cm SV(MOD-sp4): EDV(MOD-sp4): 48.0 ml 127.0 ml LVLs ap4: 8.6 cm ESV(MOD-sp4): 79.0 ml EF(MOD-sp4): 37.8 % Doppler Measurements & Calculations MV E max christelle: MV P1/2t max christelle: Ao V2 max: LV V1 max P.0 cm/sec 80.0 cm/sec 137.1 cm/sec 4.0 mmHg MV A max christelle: MV P1/2t: 40.5 msec Ao max PG: LV V1 max: 98.2 cm/sec MVA(P1/2t): 5.4 cm2 7.5 mmHg 100.0 cm/sec MV E/A: 0.81 MV dec slope: 578.9 cm/sec2 PA V2 max: TR max christelle: RAP systole: 61.7 cm/sec 238.5 cm/sec 10.0 mmHg PA max PG: TR max P.8 mmHg 1.5 mmHg RVSP(TR): 32.8 mmHg Left Ventricle The left ventricle is mildly dilated. There is mild asymmetric left ventricular hypertrophy. No 'RAJWINDER' or LVOT obstruction.Hence no IHSS. LV EF is 30%. Left ventricular systolic function is severely reduced. Doppler measurements suggest impaired left ventricular relaxation, which is associated with grade I/IV or mild diastolic dysfunction. There is severe global hypokinesis of the left ventricle. There is no thrombus. There is no ventricular septal defect visualized. Right Ventricle The right ventricle is grossly normal size. The right ventricle is not well visualized secondary to technical limitations. Atria The right atrium is normal. The left atrial size is normal. The interatrial septum is intact with no evidence for an atrial septal defect. Mitral Valve There is no evidence of mitral valve prolapse. There is no vegetation seen on the mitral valve. There is no mitral valve stenosis. There is a mild amount of mitral regurgitation. Aortic Valve There is no aortic valvular vegetation. There is no aortic valve stenosis. There is no LVOT obstruction. No aortic regurgitation is present. Tricuspid Valve There is no tricuspid stenosis. There is a trace amount of tricuspid regurgitation. There is mild pulmonary hypertension by echo. RVSP is 33 to 38 mm of Hg , with RA mean of 10 to 15. Pulmonic Valve There is no pulmonic valvular stenosis. There is no pulmonic valvular regurgitation. Great Vessels The aortic root is mildly dilated. Effusions There is no pericardial effusion. : PRESTON VOSS > Katerin Love
== END 2017-01-26 14:04 | disposition home health service (06) | DRG 987 ==
LOC: ER 11:42 → EH 16:32 → UNDOADMIN 16:32 → EH 16:33 → 3W 18:21
PROC: 07B50ZX Excision of Right Axillary Lymphatic, Open Approach, Diagnostic (ICD-10-PCS; principal; 2017-01-24 16:00)
DX: J96.01 Acute respiratory failure with hypoxia (principal); I26.99 Other pulmonary embolism without acute cor pulmonale; C34.90 Malignant neoplasm of unspecified part of unspecified bronchus or lung; R59.1 Generalized enlarged lymph nodes; Z79.899 Other long term (current) drug therapy; F17.210 Nicotine dependence, cigarettes, uncomplicated; Z88.0 Allergy status to penicillin
CPT/HCPCS: 1610; 36415; 36600; 70450; 70491; 71010; 71275; 80048; 80053; 80307; 81001; 82550; 82553; 82803; 83615; 83690; 83735; 84484; 85025; 85027; 85610; 85730; 86308; 86701; 87040; 88184; 88185; 88305; 88313; 88341; 88342; 93005; 93010; 93306; 93970; 94640; 94660; 96365; 96375; 99291; J1100; J1650; J1956; J2250; J2704; J3010; J3480; J3490; J7030; J7620; Q9968

== ENCOUNTER → 2017-02-08 | Outpatient (CLI) | payer SELFPAY ==
--- NOTE | 2017-02-09 15:43 | RADIOLOGY REPORT (SQ) ---
EXAM DESCRIPTION: PET CT SKULL/THIGH COMPLETED DATE/TIME: 02/08/2017 10:06 pm REASON FOR STUDY: LUNG CANCER C34.11 MALIGNANT NEOPLASM OF UPPER LOBE, RIGHT BRONCHUS OR L COMPARISON: CT angio chest 01/22/2017 CT soft tissue neck 01/22/2017 RADIONUCLIDE AND DOSE: 12.9 mCi F18 FDG The route of agent administration: Intravenous FASTING BLOOD SUGAR: 81 mg/dl CONTRAST TYPE AND DOSE: No CT contrast given. TECHNIQUE: Blood glucose level was verified. Above dose of FDG was injected intravenously. 2-D seg mented attenuation correction images were obtained from the base of the skull to the midthighs. Nonc ontrast CT images were obtained for attenuation correction and fusion with emission images. CT image s were performed without oral or intravenous contrast and are not sensitive for parenchymal lesions. A series of overlapping emission PET images were obtained. Images reviewed and manipulated at [facility] work station by the radiologist. Images stored on PACS. LIMITATIONS: None. FINDINGS: HEAD AND NECK: Extensive cervical adenopathy is present in the bilateral carotid spaces, p osterior triangles and supraclavicular regions. Conglomerate adenopathy in the left carotid space alcantara s SUV of 6.5. There is a large partially calcified supraclavicular lymph node on the left, 4 x 4 cm in size with WIN V 4.8. CHEST: In the upper mediastinum along the right subclavian artery and vein, a 3.7 x 3.1 cm lymph node is present with SUV of 7.6. There are enlarged upper mediastinal, pre and paratracheal lymph nodes, prevascular lymph nodes, right hilar and sub- carinal lymph nodes. A 2.3 x 1.7 cm right hilar lymph node is present with SUV of 5. There is a 2.2 x 1.5 cm right retrocrural lymph node with SUV 5.6. There is conglomerate adenopathy in the left axilla, a 4.1 x 2.5 cm left axillary lymph node is prese nt with SUV of 7.9. No pleural effusions. Multifocal airspace disease is present bilaterally, with SUV ranging from 1.5 to 3.6. A 1.2 cm non metabolic pleural based nodule in the right upper lobe is present adjacent to the latera l edge major fissure on axial image 82. ABDOMEN AND PELVIS: There is a rind of confluent adenopathy in the upper abdominal retroperitoneum, a long the celiac, superior mesenteric, and bilateral renal arteries. This is difficult to measure wit hout oral or IV contrast. Adenopathy exhibits SUV up to 7.9. PROXIMAL LOWER EXTREMITIES: No areas of abnormal metabolic activity in the soft tissues of the lower extremities. BONES: A 1.5 x 1 cm lytic lesion is present in the left innominate bone near the SI joint with SUV of 6.3. A 2 x 2 cm lytic area is present in the left sacrum at the S2 level, with SUV of 7.2. ADDITIONAL CT FINDINGS: Obstructive lung disease. Minimal coronary artery disease. Degenerative caterina nges cervical spine. OTHER: Liver background activity 1.5 SUV. Blood pool background activity 1.1 SUV. IMPRESSION: No primary lung mass is identified at PET-CT. Hypermetabolic adenopathy over the neck chest and abdomen. Left pelvic lytic hypermetabolic bone metastatic lesions TECHNICAL DOCUMENTATION: JOB ID: [id number] [employer]- All Rights Reserved
== END ==
LOC: RAD 18:52
PROVIDERS: ATTEND Internal Medicine
DX: C34.11 Malignant neoplasm of upper lobe, right bronchus or lung (principal)
CPT/HCPCS: 78815; A9552

== ENCOUNTER 2017-02-22 09:16 | Outpatient (CLI) | payer SELFPAY ==
[~2017-02-22 09:16] MED LIST: BEVACIZUMAB IV PRN; CARBOPLATIN 625 MG in NORMAL SALINE 250 ML IV PRN; CARBOPLATIN IV PRN; NORMAL SALINE 250 ML IV PRN; NORMAL SALINE IV PRN; ONDANSETRON HCL/PF 16 MG, DEXAMETHASONE SOD PHOSPHATE 10 MG in NORMAL SALINE 50 ML IV PRN; PEMETREXED DISODIUM IV PRN
[2017-02-22 10:05] LABS: HEMATOCRIT 35.9 % (37.9-51.0); HEMOGLOBIN 11.7 g/dL (13.5-17.0); HGB HCT DIFFERENCE -0.8; MEAN CORPUSCULAR HEMOGLOBIN 28.8 pg (27.0-33.4); MEAN CORPUSCULAR HGB CONC 32.6 g/dL (32.0-36.0); MEAN CORPUSCULAR VOLUME 88 fl (80-97); RED BLOOD COUNT 4.06 10^6/uL (4.35-5.55); WHITE BLOOD COUNT 7.3 10^3/uL (4.0-10.5)
[2017-02-22 10:18] VITALS: BP 112/70
[2017-02-22 10:36] LABS: BAND NEUTROPHILS % (MANUAL) 1 % (3-5); BASOPHILS % (MANUAL) 0 % (0-2); EOSINOPHILS % (MANUAL) 1 % (0-6); LYMPHOCYTES % (MANUAL) 5 % (13-45); TOTAL CELLS COUNTED 100
[2017-02-22 10:37] LABS: ANISOCYTOSIS SLIGHT; OVALOCYTES SLIGHT; POIKILOCYTOSIS SLIGHT; STOMATOCYTES SLIGHT
[2017-02-22 10:38] LABS: ALANINE AMINOTRANSFERASE 27 U/L (21-72); ALBUMIN 3.4 g/dL (3.5-5.0); ALKALINE PHOSPHATASE 90 U/L (38-126); ANION GAP 10 (5-19); ASPARTATE AMINO TRANSFERASE 25 U/L (17-59); BILIRUBIN,DIRECT 0.3 mg/dL (0.0-0.4); BILIRUBIN,TOTAL 0.3 mg/dL (0.2-1.3); BLOOD UREA NITROGEN 23 mg/dL (7-20); CALCIUM 9.2 mg/dL (8.4-10.2); CARBON DIOXIDE 31 mmol/L (22-30); CHLORIDE 100 mmol/L (98-107); CREATININE RESULT 0.56 mg/dL (0.52-1.25); GLUCOSE 93 mg/dL (75-110); POTASSIUM 4.5 mmol/L (3.6-5.0); SODIUM 140.6 mmol/L (137-145); TOTAL PROTEIN 7.6 g/dL (6.3-8.2)
[2017-02-22] MEDS: CYANOCOBALAMIN (VITAMIN B-12) INJ 1000 MCG/1 ML VIAL IM PRN ×2 (11:43→12:00)
[2017-02-22 12:27] LABS: APPEARANCE,URINE CLEAR; BILIRUBIN,URINE NEGATIVE (NEGATIVE); GLUCOSE, URINE NEGATIVE (NEGATIVE); KETONES,URINE NEGATIVE (NEGATIVE); LEUKOCYTE ESTERASE,URINE NEGATIVE (NEGATIVE); NITRITE,URINE NEGATIVE (NEGATIVE); PROTEIN,URINE NEGATIVE (NEGATIVE); URINE SPECIFIC GRAVITY 1.008; UROBILINOGEN,URINE NEGATIVE mg/dL (<2.0)
== END 2017-02-22 15:10 | disposition home or self-care (01) ==
LOC: II 09:16 → 5TH 09:18 → II 15:10
PROVIDERS: ATTEND Internal Medicine
PROC: 3E013GC Introduction of Other Therapeutic Substance into Subcutaneous Tissue, Percutaneous Approach (ICD-10-PCS; principal; 2017-02-22)
PROC: 3E03305 Introduction of Other Antineoplastic into Peripheral Vein, Percutaneous Approach (ICD-10-PCS; 2017-02-22)
PROC: 3E0330M Introduction of Antineoplastic, Monoclonal Antibody, into Peripheral Vein, Percutaneous Approach (ICD-10-PCS; 2017-02-22)
PROC: 3E033GC Introduction of Other Therapeutic Substance into Peripheral Vein, Percutaneous Approach (ICD-10-PCS; 2017-02-22)
DX: Z51.11 Encounter for antineoplastic chemotherapy (principal); C34.11 Malignant neoplasm of upper lobe, right bronchus or lung; D70.2 Other drug-induced agranulocytosis
CPT/HCPCS: 36415; 85025; 80053; 81001; 96413; 96415; 96367; 96372; J3420; J9045; J2405; J7050; J1100; J9305; J9035; 96375; 96417

== ENCOUNTER → 2017-03-28 | Outpatient (CLI) | payer SELFPAY ==
--- NOTE | 2017-03-28 10:52 | RADIOLOGY REPORT (SQ) ---
EXAM DESCRIPTION: CT SOFT TISSUE NECK WITH COMPLETED DATE/TIME: 03/28/2017 9:52 am REASON FOR STUDY: C34.11 MALIGNANT NEOPLASM OF UPPER LOBE, RIGHT BRONCHUS OR LUNG C34.11 MALIGNANT NEOPLASM OF UPPER LOBE, RIGHT BRONCHUS OR L COMPARISON: 01/22/2017 TECHNIQUE: Post IV contrasted scanning from skull base through lung apices with review of bone, soft tissue and lung windows. Reconstructed coronal and sagittal MPR images reviewed. All images stored on PACS. All CT scanners at this facility use dose modulation, iterative reconstruction, and/or weight based d osing when appropriate to reduce radiation dose to as low as reasonably achievable (ALARA). [facility]: Dose Right [facility]: CareDose [facility]: Dose Right [facility]: Teradose 4D [facility]: Smart [employer] CONTRAST TYPE AND DOSE: See separate report of the same date. RENAL FUNCTION: See separate report of the same date. RADIATION DOSE: . LIMITATIONS: None. FINDINGS: SKULL BASE: Intact. MAJOR SALIVARY GLANDS: No solid or cystic masses. No inflammatory changes. LYMPHADENOPATHY: Extensive adenopathy above and below the hyoid has improved slightly. For example a nterior triangle node to left of midline image 23 previously 2.2 x 2.2 cm, now 1.6 x 1.6 cm. Left po sterior triangle node at level of hyoid image 40, previously 2.3 x 2.4 cm, now 1.8 x 1.8 cm. MUCOSAL MASSES OR ASYMMETRY: No mucosal masses or asymmetry. LARYNX/CORDS: No abnormal findings. VASCULAR STRUCTURES: Stable. LUNG APICES: See separate report of the same date. BONES: Intact. THYROID: Normal size. No masses. PARANASAL SINUSES: Clear. OTHER: No other significant finding. IMPRESSION: Improved adenopathy. Favorable response to therapy. TECHNICAL DOCUMENTATION: JOB ID: [id number] Quality ID # [id number]: Final reports with documentation of one or more dose reduction techniques (e.g., Au tomated exposure control, adjustment of the mA and/or kV according to patient size, use of iterative reconstruction technique) 2010 [employer]- All Rights Reserved
--- NOTE | 2017-03-28 11:21 | RADIOLOGY REPORT (SQ) ---
EXAM DESCRIPTION: CT CHEST WITH COMPLETED DATE/TIME: 03/28/2017 9:52 am REASON FOR STUDY: C34.11 MALIGNANT NEOPLASM OF UPPER LOBE, RIGHT BRONCHUS OR LUNG C34.11 MALIGNANT NEOPLASM OF UPPER LOBE, RIGHT BRONCHUS OR L COMPARISON: 01/22/2017 TECHNIQUE: CT scan of the chest performed using helical scanning technique with dynamic intravenous contrast injection. Images reviewed with lung, soft tissue and bone windows. Reconstructed coronal and sagittal MPR images reviewed. All images stored on PACS. All CT scanners at this facility use dose modulation, iterative reconstruction, and/or weight based d osing when appropriate to reduce radiation dose to as low as reasonably achievable (ALARA). [facility]: Dose Right [facility]: CareDose [facility]: Dose Right [facility]: Teradose 4D [facility]: [employer] CONTRAST TYPE AND DOSE: See separate report of the same date. RENAL FUNCTION: See separate report of same date. RADIATION DOSE: . LIMITATIONS: None. FINDINGS: LUNGS AND PLEURA: Pulmonary nodules are stable. No new nodules. Overall improved aeratio n. There is a background of COPD. HILAR AND MEDIASTINAL STRUCTURES: Supraclavicular adenopathy not significantly changed. Level 2, lev el 7 bilateral level 10 nodes are stable. HEART AND VASCULAR STRUCTURES: Central emboli have cleared. HARDWARE: None in the chest. UPPER ABDOMEN: See separate report of the CT of the abdomen. THYROID AND OTHER SOFT TISSUES: See separate neck CT report. BONES: No acute findings. OTHER: No other significant finding. IMPRESSION: Adenopathy and pulmonary nodules are stable. TECHNICAL DOCUMENTATION: JOB ID: [id number] Quality ID # [id number]: Final reports with documentation of one or more dose reduction techniques (e.g., Au tomated exposure control, adjustment of the mA and/or kV according to patient size, use of iterative reconstruction technique) 2010 [employer]- All Rights Reserved
--- NOTE | 2017-03-28 11:38 | RADIOLOGY REPORT (SQ) ---
EXAM DESCRIPTION: CT ABD/PELVIS WITH IV ONLY COMPLETED DATE/TIME: 03/28/2017 9:52 am REASON FOR STUDY: C34.11 MALIGNANT NEOPLASM OF UPPER LOBE, RIGHT BRONCHUS OR LUNG C34.11 MALIGNANT NEOPLASM OF UPPER LOBE, RIGHT BRONCHUS OR L COMPARISON: None. TECHNIQUE: CT scan of the abdomen and pelvis performed using helical scanning technique with dynamic intravenous contrast injection. No oral contrast. Images reviewed with lung, soft tissue, and bone windows. Reconstructed coronal and sagittal MPR images reviewed. Delayed images for evaluation of the urinary system also acquired. All images stored on PACS. All CT scanners at this facility use dose modulation, iterative reconstruction, and/or weight based d osing when appropriate to reduce radiation dose to as low as reasonably achievable (ALARA). [facility]: Dose Right [facility]: CareDose [facility]: Dose Right [facility]: Teradose 4D [facility]: [employer] CONTRAST TYPE AND DOSE: contrast/concentration: Isovue 370.00 mg/ml; Total Contrast Delivered: 69.0 ml; Total Saline Delivered: 65.0 ml RENAL FUNCTION: BUN 13 creatinine 0.6 RADIATION DOSE: . LIMITATIONS: None. FINDINGS: LOWER CHEST: See separate report of the CT of the chest. LIVER: Normal size. No masses. No dilated ducts. SPLEEN: Normal size. No focal lesions. PANCREAS: No masses. No significant calcifications. No adjacent inflammation or peripancreatic fluid collections. Pancreatic duct not dilated. GALLBLADDER: No identified stones by CT criteria. No inflammatory changes to suggest cholecystitis. ADRENAL GLANDS: No significant masses or asymmetry. RIGHT KIDNEY AND URETER: No solid masses. No significant calcifications. No hydronephrosis or hyd roureter. LEFT KIDNEY AND URETER: No solid masses. No significant calcifications. No hydronephrosis or hydr oureter. AORTA AND VESSELS: No aneurysm. RETROPERITONEUM: Large retroperitoneal nodes, the largest 1.7 x 2.5 cm adjacent to the right renal ve in. BOWEL AND PERITONEAL CAVITY: Adenopathy in the celiac and superior mesenteric axis, the largest about 2.8 x 3 0 cm just lateral to the proximal celiac artery. APPENDIX: Normal. PELVIS: No mass. No free fluid. Normal bladder. ABDOMINAL WALL: No masses. No hernias. BONES: Subtle lesion in the left sacrum with sclerotic rim adjacent to the SI joint, better visualize d on PET. OTHER: No other significant finding. IMPRESSION: Upper abdominal and retroperitoneal adenopathy. Sclerotic lesion left sacrum. TECHNICAL DOCUMENTATION: JOB ID: [id number] Quality ID # [id number]: Final reports with documentation of one or more dose reduction techniques (e.g., Au tomated exposure control, adjustment of the mA and/or kV according to patient size, use of iterative reconstruction technique) 2010 [employer]- All Rights Reserved
== END ==
LOC: RAD 09:10
PROVIDERS: ATTEND Internal Medicine
DX: C34.11 Malignant neoplasm of upper lobe, right bronchus or lung (principal)
CPT/HCPCS: 70491; 71260; 74177

== ENCOUNTER 2017-04-05 11:38 | Outpatient (CLI) | payer SELFPAY ==
[~2017-04-05 11:38] MED LIST changes: -CARBOPLATIN IV PRN
[2017-04-05 12:26] LABS: ALANINE AMINOTRANSFERASE 26 U/L (21-72); ALBUMIN 3.6 g/dL (3.5-5.0); ALKALINE PHOSPHATASE 106 U/L (38-126); ANION GAP 10 (5-19); ASPARTATE AMINO TRANSFERASE 26 U/L (17-59); BILIRUBIN,DIRECT 0.4 mg/dL (0.0-0.4); BILIRUBIN,TOTAL 0.4 mg/dL (0.2-1.3); BLOOD UREA NITROGEN 19 mg/dL (7-20); CALCIUM 8.8 mg/dL (8.4-10.2); CARBON DIOXIDE 33 mmol/L (22-30); CHLORIDE 98 mmol/L (98-107); CREATININE RESULT 0.75 mg/dL (0.52-1.25); GLUCOSE 141 mg/dL (75-110); POTASSIUM 4.5 mmol/L (3.6-5.0); SODIUM 141.4 mmol/L (137-145)
[2017-04-05 12:28] VITALS: BP 126/94
== END 2017-04-05 15:14 | disposition home or self-care (01) ==
LOC: II 11:38 → 5TH 11:41 → II 15:14
PROVIDERS: ATTEND Internal Medicine
PROC: 3E0330M Introduction of Antineoplastic, Monoclonal Antibody, into Peripheral Vein, Percutaneous Approach (ICD-10-PCS; principal; 2017-04-05)
PROC: 3E03305 Introduction of Other Antineoplastic into Peripheral Vein, Percutaneous Approach (ICD-10-PCS; 2017-04-05)
PROC: 3E033GC Introduction of Other Therapeutic Substance into Peripheral Vein, Percutaneous Approach (ICD-10-PCS; 2017-04-05)
DX: Z51.11 Encounter for antineoplastic chemotherapy (principal); C34.11 Malignant neoplasm of upper lobe, right bronchus or lung; D70.2 Other drug-induced agranulocytosis; J44.9 Chronic obstructive pulmonary disease, unspecified; Z99.81 Dependence on supplemental oxygen; Z86.711 Personal history of pulmonary embolism
CPT/HCPCS: 80053; 96413; 96415; 96367; 96417; J9045 ×3; J2405; J7050; J1100; J9305; J9035 ×2; 96411

== ENCOUNTER 2017-04-12 09:32 | Outpatient (CLI) | payer SELFPAY ==
[~2017-04-12 09:32] MED LIST changes: -BEVACIZUMAB IV PRN; -CARBOPLATIN 625 MG in NORMAL SALINE 250 ML IV PRN; +DENOSUMAB 120 MG in SYRINGE, DISPOSABLE, 1 EACH SUBCUT PRN; -NORMAL SALINE 250 ML IV PRN; -NORMAL SALINE IV PRN; -ONDANSETRON HCL/PF 16 MG, DEXAMETHASONE SOD PHOSPHATE 10 MG in NORMAL SALINE 50 ML IV PRN; -PEMETREXED DISODIUM IV PRN
[2017-04-12 10:34] LABS: ABSOLUTE EOSINOPHILS # (AUTO) 0.1 10^3/uL (0.0-0.6); ABSOLUTE LYMPHOCYTES (AUTO) 0.2 10^3/uL (0.5-4.7); ABSOLUTE MONOCYTES (AUTO) 0.1 10^3/uL (0.1-1.4); ABSOLUTE NEUT (AUTO) 0.7 10^3/uL (1.7-8.2); EOSINOPHILS % (AUTO) 4.9 % (0-6); HEMATOCRIT 30.7 % (37.9-51.0); HEMOGLOBIN 10.1 g/dL (13.5-17.0); HGB HCT DIFFERENCE -0.4; LYMPHOCYTES % (AUTO) 21.7 % (13-45); MEAN CORPUSCULAR HGB CONC 32.8 g/dL (32.0-36.0); MEAN CORPUSCULAR VOLUME 92 fl (80-97); MONOCYTES % (AUTO) 5.3 % (3-13); RED BLOOD COUNT 3.36 10^6/uL (4.35-5.55); RED CELL DISTRIBUTION WIDTH 17.4 % (11.5-14.0); SEGMENTED NEUTROPHILS % (AUTO) 67.1 % (42-78)
[2017-04-12 10:37] LABS: APPEARANCE,URINE SLIGHTLY-CLOUDY; BILIRUBIN,URINE NEGATIVE (NEGATIVE); GLUCOSE, URINE NEGATIVE (NEGATIVE); KETONES,URINE NEGATIVE (NEGATIVE); LEUKOCYTE ESTERASE,URINE NEGATIVE (NEGATIVE); NITRITE,URINE NEGATIVE (NEGATIVE); PROTEIN,URINE 100 mg/dL (NEGATIVE); URINE SPECIFIC GRAVITY 1.015; UROBILINOGEN,URINE NEGATIVE mg/dL (<2.0)
[2017-04-12 10:50] VITALS: BP 120/90
[2017-04-12 11:02] LABS: WHITE BLOOD COUNT 1.1 10^3/uL (4.0-10.5)
[2017-04-12 11:03] LABS: ANISOCYTOSIS 2+; TOXIC GRANULATION SLIGHT
[2017-04-12 11:04] LABS: ALANINE AMINOTRANSFERASE 31 U/L (21-72); ALBUMIN 3.6 g/dL (3.5-5.0); ALKALINE PHOSPHATASE 107 U/L (38-126); ANION GAP 10 (5-19); ASPARTATE AMINO TRANSFERASE 35 U/L (17-59); BILIRUBIN,DIRECT 0.3 mg/dL (0.0-0.4); BILIRUBIN,TOTAL 0.7 mg/dL (0.2-1.3); BLOOD UREA NITROGEN 18 mg/dL (7-20); CALCIUM 8.5 mg/dL (8.4-10.2); CARBON DIOXIDE 30 mmol/L (22-30); CHLORIDE 98 mmol/L (98-107); CREATININE RESULT 0.65 mg/dL (0.52-1.25); GLUCOSE 94 mg/dL (75-110); POTASSIUM 4.4 mmol/L (3.6-5.0); SODIUM 137.9 mmol/L (137-145); TOTAL PROTEIN 8.1 g/dL (6.3-8.2)
[2017-04-13 14:38] LABS: PATH REVIEW PATHOLOGIST REVIEWED
== END 2017-04-12 10:50 | disposition hospice, home (50) ==
LOC: II 09:32 → 5TH 09:43 → II 10:50
PROVIDERS: ATTEND Internal Medicine
PROC: 3E0130M Introduction of Antineoplastic, Monoclonal Antibody, into Subcutaneous Tissue, Percutaneous Approach (ICD-10-PCS; principal; 2017-04-12)
DX: Z51.11 Encounter for antineoplastic chemotherapy (principal); C34.11 Malignant neoplasm of upper lobe, right bronchus or lung; D70.2 Other drug-induced agranulocytosis; C79.51 Secondary malignant neoplasm of bone; J44.9 Chronic obstructive pulmonary disease, unspecified; Z99.81 Dependence on supplemental oxygen; Z79.899 Other long term (current) drug therapy; Z79.02 Long term (current) use of antithrombotics/antiplatelets
CPT/HCPCS: 36415; 85025; 80053; 81001; 96401; J3490; J0897

== ENCOUNTER 2017-04-18 08:21 | Emergency (ER) | payer SELFPAY ==
[2017-04-18] MEDS ORDERED: OXYMETAZOLINE HCL 0.05% NASAL SPRAY 15 ML BOTTLE NASL ONE (09:25)
--- NOTE | 2017-04-18 11:30 | ER Document Report ---
ED ENT - General Chief Complaint: Nose Bleed Stated Complaint: NOSE BLEED Time Seen by Provider: 04/18/17 09:25 Mode of Arrival: Ambulatory Information source: Patient Notes: Patient is a 51-year-old male comes emergency room complaining of epistasis patient states he started bleeding on both sides of the nose about a week ago he went to see his primary care provider Dr. Gonzales who had him use nasal saline to keep the area moist. Patient history is he is a lung cancer patient that is going through chemotherapy currently he is on Xarelto for a PE obtained about a month ago. He is also using O2 at home via nasal cannula he does have humidification at home but not when he is out and about. He is recently changed his nasal cannula to a mask type of apparatus because he is more of a mouth breather. These nosebleeds are something that recently started this past week they subsided a while while he was using nasal saline and then the left side started bleeding again last night when he woke up this morning he had a small puddle of blood on his pillow. TRAVEL OUTSIDE OF THE [place] IN LAST 30 DAYS: No - HPI Patient complains to provider of: Nose problem Onset: Last week Onset/Duration: Sudden, Waxing and waning, Worse Quality of pain: Dull Severity: Moderate Pain Level: 2 Context: Other - Medication induced Location of pain: Nose Associated symptoms: Nose bleed Similar symptoms previously: Yes Recently seen / treated by doctor: Yes - Related Data Allergies/Adverse Reactions: Penicillins Allergy (Verified 04/18/17 08:22) Home Medications: Current Home Medications Folic Acid 1 mg PO DAILY 04/18/17 [History] Multivitamin/Iron/Folic Acid [Centrum Adults Tablet] 1 each PO DAILY 04/18/17 [ History] Rivaroxaban [Xarelto] 20 mg PO DAILY 04/18/17 [History] Past Medical History - General Information source: Patient - Social History Smoking Status: Former Smoker Cigarette use (# per day): No Chew tobacco use (# tins/day): No Smoking Education Provided: No Frequency of alcohol use: None Drug Abuse: None Lives with: Family Family History: None, Reviewed & Not Pertinent Patient has suicidal ideation: No Patient has homicidal ideation: No - Past Medical History Cardiac Medical History: Reports: None Pulmonary Medical History: Reports: Hx COPD, Other - Lung cancer EENT Medical History: Reports: Nose Renal/ Medical History: Denies: Hx Peritoneal Dialysis Review of Systems - Review of Systems Constitutional: No symptoms reported EENT: Nose congestion Cardiovascular: No symptoms reported Respiratory: See HPI, Short of breath Gastrointestinal: No symptoms reported Genitourinary: No symptoms reported Male Genitourinary: No symptoms reported Musculoskeletal: No symptoms reported Skin: No symptoms reported Hematologic/Lymphatic: No symptoms reported Neurological/Psychological: No symptoms reported -: Yes All other systems reviewed and negative Physical Exam - Vital signs Vitals: Temp Pulse Resp BP Pulse Ox 97.9 F 120 H 18 108/76 98 04/18/17 08:27 04/18/17 08:27 04/18/17 08:27 04/18/17 08:27 04/18/17 08:27 Interpretation: Tachycardic - Notes Notes: Patient is a very frail 51-year-old male. - General General appearance: Alert - HEENT Head: Normocephalic, Atraumatic Eyes: Normal Nasal: Bloody discharge, Epistaxis, Other - Examination patient's left nare shows he has been placed on tissue paper collect the blood. After removing the tissue paper you can see that this may most likely be a anterior type of a vessel rupture. There is blood in the area so unable to pinpoint the exact location. But still actively oozing from somewhere. There is no pain to palpation on the nasal area. Mouth/Lips: Normal Mucous membranes: Normal, Moist Pharynx: Normal, Other - Physical examination of the oropharynx shows no drainage of blood from patient into the posterior pharynx. Neck: Normal - Respiratory Respiratory status: No respiratory distress, Depressed respirations Chest status: Nontender Breath sounds: Decreased air movement, Nonproductive cough Chest palpation: Normal - Cardiovascular Rhythm: Tachycardia Murmur: No - Neurological Neuro grossly intact: Yes Cognition: Normal Orientation: AAOx4 Helga Coma Scale Eye Opening: Spontaneous Helga Coma Scale Verbal: Oriented Helga Coma Scale Motor: Obeys Commands Helga Coma Scale Total: 15 Speech: Normal Course - Vital Signs Vital signs: Temp Pulse Resp BP Pulse Ox 97.9 F 120 H 18 108/76 98 04/18/17 08:27 04/18/17 08:27 04/18/17 08:27 04/18/17 08:27 04/18/17 08:27 - Transfer of Care Notes: 04/18/17 11:57 Patient is been here approximately 2-1/2 hours with his epistaxis basically has not bled very much since he has been here. I removed the original tissue packing he had in there and swap that out for some 2 x 2 gauze with pseudoephedrine soaked. I left those in for about 30 minutes went back and rechecked on patient pulled those very gently and the bleeding seemed to have subsided much more. I was able to find finally some cotton balls which are a better form fit I soaked those and apply those to his left nare and had him sit there for another 35 minutes. I am going back and removed that and we have been bleed free for the last hour. I informed patient that if it starts to bleed again he can come back and we will just insert a Rhino Rocket. If we have to do that he will have to leave it in for 3 or 4 days and then see ears nose and throat. He also can go back and see his primary care doctor Rylan for follow-up in 2448 hrs. I have informed him that again he can attempt to use the Afrin at home if he were to start bleeding. Is going to be difficult for him to have this 100% corrected secondary to his using oxygen all the time. I will give patient the name of the ears nose and throat physician which is Dr. Richey. Patient is in agreement with this plan. Discharge - Discharge Clinical Impression: Epistaxis not due to trauma Condition: Good Disposition: HOME, SELF-CARE Instructions: Nosebleed Instructions (OM) Additional Instructions: As we discussed this is a difficult fix for you because you are on oxygen at all times. We talked about humidification the may be used and since you have a mask he may try your mask instead of the nasal cannula. You must be very hoang with this nosebleed and that if you attempt to blow to hard or if you attempt to pick it it will start bleeding again. As we have also discussed if it starts bleeding return to ER we will place in what is called a Rhino Rocket and we will leave it there for a few days and have a follow-up again with ears nose and throat. We have also discussed how you can attempt to stop the bleeding at home with the Afrin nasal spray on cotton balls and we have approached that and thought you had a do it as well. This may be 1 of the options you have at home. Other than that return to ER for recheck. Referrals: SOLANGE GONZALES MD [Primary Care Provider] - Follow up as needed JED RICHEY DO [ASSOCIATE] - Follow up as needed
[2017-04-18 12:17] VITALS: BP 139/88
== END 2017-04-18 12:16 | disposition home or self-care (01) ==
LOC: ER 08:21
DX: R04.0 Epistaxis (principal); C34.90 Malignant neoplasm of unspecified part of unspecified bronchus or lung; I26.99 Other pulmonary embolism without acute cor pulmonale; J44.9 Chronic obstructive pulmonary disease, unspecified; R00.0 Tachycardia, unspecified; Z79.01 Long term (current) use of anticoagulants; Z99.81 Dependence on supplemental oxygen; Z88.0 Allergy status to penicillin; Z87.891 Personal history of nicotine dependence
CPT/HCPCS: 99283; J3490

== ENCOUNTER 2017-04-26 11:30 | Outpatient (CLI) | payer SELFPAY ==
[~2017-04-26 11:30] MED LIST changes: +BEVACIZUMAB IV PRN; +CARBOPLATIN 625 MG in NORMAL SALINE 250 ML IV PRN; -DENOSUMAB 120 MG in SYRINGE, DISPOSABLE, 1 EACH SUBCUT PRN; +NORMAL SALINE 250 ML IV PRN; +NORMAL SALINE IV PRN; +ONDANSETRON HCL/PF 16 MG, DEXAMETHASONE SOD PHOSPHATE 10 MG in NORMAL SALINE 50 ML IV PRN; +PEMETREXED DISODIUM IV PRN
[2017-04-26 11:56] VITALS: BP 119/83
[2017-04-26] MEDS: CYANOCOBALAMIN (VITAMIN B-12) INJ 1000 MCG/1 ML VIAL IM PRN ×2 (12:35→12:46)
== END 2017-04-26 16:35 | disposition home or self-care (01) ==
LOC: II 11:30 → 5TH 11:31 → II 16:35
PROVIDERS: ATTEND Internal Medicine
PROC: 3E023GC Introduction of Other Therapeutic Substance into Muscle, Percutaneous Approach (ICD-10-PCS; principal; 2017-04-26)
PROC: 3E0330M Introduction of Antineoplastic, Monoclonal Antibody, into Peripheral Vein, Percutaneous Approach (ICD-10-PCS; 2017-04-26)
PROC: 3E03305 Introduction of Other Antineoplastic into Peripheral Vein, Percutaneous Approach (ICD-10-PCS; 2017-04-26)
PROC: 3E033GC Introduction of Other Therapeutic Substance into Peripheral Vein, Percutaneous Approach (ICD-10-PCS; 2017-04-26)
DX: Z51.11 Encounter for antineoplastic chemotherapy (principal); C34.11 Malignant neoplasm of upper lobe, right bronchus or lung; D70.2 Other drug-induced agranulocytosis
CPT/HCPCS: 96411; 96413; 96367; 96372; 96417; J3420; J9045; J2405; J7050; J1100; J9305; J9035 ×2; 96415

== ENCOUNTER 2017-05-01 15:13 | Inpatient (IN) | payer SELFPAY ==
--- NOTE | 2017-05-01 15:48 | ER Document Report ---
ED General - General Chief Complaint: Shortness Of Breath Stated Complaint: SHORTNESS OF BREATH Time Seen by Provider: 05/01/17 15:35 Mode of Arrival: Medic Information source: Patient, Relative Notes: 51-year-old male lung CA history diagnosed 4 months ago who is receiving chemotherapy presents with complaints of shortness of breath difficulty breathing and intermittent chest pains over the past 3 days. TRAVEL OUTSIDE OF THE [place] IN LAST 30 DAYS: No - HPI Onset: Other - 3 day duration Onset/Duration: Waxing and waning Quality of pain: Achy Severity: Severe Pain Level: 5 Associated symptoms: Chest pain, Shortness of breath Exacerbated by: Denies Relieved by: Denies Similar symptoms previously: No Recently seen / treated by doctor: No - Related Data Allergies/Adverse Reactions: Penicillins Allergy (Verified 05/01/17 15:14) Past Medical History - Social History Smoking Status: Former Smoker Cigarette use (# per day): No Chew tobacco use (# tins/day): No Smoking Education Provided: No Family History: None, Reviewed & Not Pertinent Pulmonary Medical History: Reports: Hx COPD Renal/ Medical History: Denies: Hx Peritoneal Dialysis Review of Systems - Review of Systems Notes: REVIEW OF SYSTEMS: CONSTITUTIONAL : Denies fever, chills, or sweats. Denies recent illness. EENT: Denies eye, ear, throat, or mouth pain or symptoms. Denies nasal or sinus congestion or discharge. Denies throat, tongue, or mouth swelling or difficulty swallowing. CARDIOVASCULAR: Admits to chest pain RESPIRATORY: Admits shortness of breath GASTROINTESTINAL: Denies abdominal pain or distention. Denies nausea, vomiting , or diarrhea. Denies blood in vomitus, stools, or per rectum. Denies black, tarry stools. Denies constipation. GENITOURINARY: Denies difficulty urinating, painful urination, burning, frequency, blood in urine, or discharge. MUSCULOSKELETAL: Denies back or neck pain or stiffness. Denies joint pain or swelling. SKIN: Denies rash, lesions or sores. HEMATOLOGIC : Denies easy bruising or bleeding. LYMPHATIC: Denies swollen, enlarged glands. NEUROLOGICAL: Denies confusion or altered mental status. Denies passing out or loss of consciousness. Denies dizziness or lightheadedness. Denies headache. Denies weakness or paralysis or loss of use of either side. Denies problems with gait or speech. Denies sensory loss, numbness, or tingling. Denies seizures. PSYCHIATRIC: Admits to anxiety ALL OTHER SYSTEMS REVIEWED AND NEGATIVE. Dictation was performed using [employer] voice recognition software PHYSICAL EXAMINATION: GENERAL: Cachectic ill-appearing male in significant distress HEAD: Atraumatic, normocephalic. EYES: Pupils equal round and reactive to light, extraocular movements intact, sclera anicteric, conjunctiva are normal. ENT: Nares patent, oropharynx clear without exudates. Moist mucous membranes. NECK: Normal range of motion, supple without lymphadenopathy LUNGS: Breath sounds clear to auscultation bilaterally and equal. No wheezes rales or rhonchi. HEART: Tachycardic ABDOMEN: Soft, nontender, nondistended abdomen. No guarding, no rebound. No masses appreciated. Musculoskeletal: Normal range of motion, no pitting or edema. No cyanosis. NEUROLOGICAL: Cranial nerves grossly intact. Normal speech, normal gait. Normal sensory, motor exams PSYCH: Normal mood, normal affect. SKIN: Mottled Physical Exam - Vital signs Vitals: Resp 14 05/01/17 15:41 Course - Re-evaluation Re-evalutation: 05/01/17 15:50 EKG is concerning for ST elevation IN I will send this to cardiology immediately 05/01/17 16:10 After I spoke with [facility] they did call back and notify me that the radiology scheduler has left, therefore I have just contacted [facility] cardiology service 05/01/17 16:24 Vidhi Flowers is unsure if this is an IN or RBBB, possible already evolved IN, he states it is not striaght forward. 05/01/17 17:01 Patient's troponin is noted to be greater than 80 I did contact cardiology back 05/01/17 17:11 Dr Susie flowers believes patient needs to og to the ICU Dr Jean-Baptiste accepts, they do not believe intervention is appropriate that this is a delayed my presentation 05/01/17 17:12 05/01/17 18:05 Family and patient now want just comfort care, they do not want any intervention. 05/01/17 18:08 [facility] notified 05/01/17 18:52 Patient has been admitted for comfort care measures alone - Vital Signs Vital signs: Temp Pulse Resp BP Pulse Ox 97.4 F 26 H 96/82 L 95 05/01/17 15:47 05/01/17 18:16 05/01/17 18:16 05/01/17 16:30 - Laboratory Result Diagrams: 05/01/17 15:57 05/01/17 15:57 Laboratory results interpreted by me: 05/01/17 05/01/17 05/01/17 15:57 15:57 15:57 RBC 3.30 L Hgb 10.0 L Hct 29.9 L RDW 19.0 H Seg Neuts % (Manual) 83 H Band Neutrophils % 2 L Lymphocytes % (Manual) 10 L VBG pH Carbon Dioxide 21 L BUN 48 H Glucose 136 H Lactic Acid 7.6 H AST 738 H ALT 79 H Creatine Kinase CK-MB (CK-2) 05/01/17 05/01/17 05/01/17 15:57 15:57 15:57 RBC Hgb Hct RDW Seg Neuts % (Manual) Band Neutrophils % Lymphocytes % (Manual) VBG pH 7.27 L Carbon Dioxide BUN Glucose Lactic Acid AST ALT Creatine Kinase 5974 H CK-MB (CK-2) 421.00 H Critical Care Note - Critical Care Note Total time excluding time spent on procedures (mins): 45 Comments: minutes of critical care time spent in direct contact evaluating and reevaluating the patient, treating symptoms, reviewing labs and studies and speaking with family and consultants excluding any procedures Discharge - Discharge Clinical Impression: Acute hypoxemic respiratory failure, Comfort measures only status STEMI (ST elevation myocardial infarction) Qualifiers: Involved coronary artery: unspecified coronary artery Qualified Code(s): I21.3 - ST elevation (STEMI) myocardial infarction of unspecified site Condition: Critical Disposition: ADMITTED INPATIENT Admitting Provider: Hospitalist Unit Admitted: Medical Floor
[2017-05-01 16:08] LABS: VENOUS BLOOD BASE EXCESS -5.9 mmol/L; VENOUS BLOOD HCO3 21.3 mmol/L (20-32); VENOUS BLOOD PCO2 47.8 mmHg (35-63); VENOUS BLOOD PH 7.27 (7.30-7.42)
[2017-05-01 16:12] LABS: HEMATOCRIT 29.9 % (37.9-51.0); HGB HCT DIFFERENCE 0.1; MEAN CORPUSCULAR HEMOGLOBIN 30.4 pg (27.0-33.4); MEAN CORPUSCULAR HGB CONC 33.6 g/dL (32.0-36.0); MEAN CORPUSCULAR VOLUME 91 fl (80-97); WHITE BLOOD COUNT 5.4 10^3/uL (4.0-10.5)
[2017-05-01 16:14] LABS: PROTHROMBIN TIME 15.2 SEC (11.4-15.4)
[2017-05-01 16:23] LABS: ALANINE AMINOTRANSFERASE 79 U/L (21-72); ALBUMIN 3.7 g/dL (3.5-5.0); ALKALINE PHOSPHATASE 100 U/L (38-126); ANION GAP 19 (5-19); ASPARTATE AMINO TRANSFERASE 738 U/L (17-59); BILIRUBIN,DIRECT 0.3 mg/dL (0.0-0.4); BILIRUBIN,TOTAL 0.5 mg/dL (0.2-1.3); BLOOD UREA NITROGEN 48 mg/dL (7-20); CALCIUM 8.4 mg/dL (8.4-10.2); CARBON DIOXIDE 21 mmol/L (22-30); CHLORIDE 99 mmol/L (98-107); CREATININE RESULT 1.21 mg/dL (0.52-1.25); GLUCOSE 136 mg/dL (75-110); POTASSIUM 4.3 mmol/L (3.6-5.0); SODIUM 138.8 mmol/L (137-145); TOTAL PROTEIN 8.1 g/dL (6.3-8.2)
[2017-05-01] MEDS ORDERED: LORAZEPAM INJ 2 MG/1 ML VIAL IV ONE (16:34)
[2017-05-01 16:37] LABS: BAND NEUTROPHILS % (MANUAL) 2 % (3-5); BASOPHILS % (MANUAL) 0 % (0-2); EOSINOPHILS % (MANUAL) 0 % (0-6); LYMPHOCYTES % (MANUAL) 10 % (13-45); TOTAL CELLS COUNTED 100
[2017-05-01 16:40] LABS: ANISOCYTOSIS 2+; OVALOCYTES SLIGHT; POIKILOCYTOSIS SLIGHT; TEAR DROP CELLS SLIGHT; TOXIC GRANULATION 1+; TOXIC VACUOLATION PRESENT
[2017-05-01] MEDS: NORMAL SALINE 1000 ML 1,000 ML IV PRN ×2 (16:49→16:50)
--- NOTE | 2017-05-01 16:50 | RADIOLOGY REPORT (SQ) ---
EXAM DESCRIPTION: CHEST SINGLE VIEW COMPLETED DATE/TIME: 05/01/2017 4:19 pm REASON FOR STUDY: dyspnea COMPARISON: None. EXAM PARAMETERS: NUMBER OF VIEWS: One view. TECHNIQUE: Single frontal radiographic view of the chest acquired. RADIATION DOSE: NA LIMITATIONS: None. FINDINGS: LUNGS AND PLEURA: There are chronic bilateral interstitial changes and changes of bullous emphysema. There is suggestion of infiltrate at cardiophrenic region which could represent chronic c hange. MEDIASTINUM AND HILAR STRUCTURES: Persistent prominence of the right paratracheal soft tissues attrib uted to adenopathy. Prominent right hilum suggesting adenopathy. HEART AND VASCULAR STRUCTURES: Left ventricular prominence and aortic atherosclerosis. BONES: No acute findings. HARDWARE: None in the chest. OTHER: Chest leads in place. IMPRESSION: Changes compatible with bullous emphysema and chronic interstitial fibrosis. Prominent right paratracheal and right hilar adenopathy TECHNICAL DOCUMENTATION: JOB ID: [id number] SC-[id number] 2010 [employer]- All Rights Reserved
[2017-05-01] MEDS ORDERED: HEPARIN SOD (PORCINE) 1,000 UNIT/ML 10 ML VIAL IV ONE (17:16)
[2017-05-01] MEDS ORDERED: HEPARIN SODIUM,PORCINE/D5W 25,000 UNIT/250 ML RTUINJ IV PRN (17:16)
[2017-05-01] MEDS ORDERED: ASPIRIN 325 MG TABLET PO ONE (17:17)
[2017-05-01] MEDS ORDERED: HEPARIN SODIUM,PORCINE/D5W 25,000 UNIT/250 ML RTUINJ IV ONE (17:32)
--- NOTE | 2017-05-01 17:32 | RADIOLOGY REPORT (SQ) ---
EXAM DESCRIPTION: CTA CHEST COMPLETED DATE/TIME: 05/01/2017 5:09 pm REASON FOR STUDY: sob , lung ca COMPARISON: 03/28/2017. TECHNIQUE: CT scan of the chest performed using helical scanning technique with dynamic intravenous contrast injection. Images reviewed with lung, soft tissue and bone windows. Reconstructed coronal and sagittal MPR images reviewed. Additional 3 dimensional post-processing performed to develop Maximal Intensity Projection images (PR P). All images stored on PACS. All CT scanners at this facility use dose modulation, iterative reconstruction, and/or weight based d osing when appropriate to reduce radiation dose to as low as reasonably achievable (ALARA). [facility]: Dose Right [facility]: CareDose [facility]: Dose Right [facility]: Teradose 4D [facility]: [facility] CONTRAST TYPE AND DOSE: contrast/concentration: Isovue 370.00 mg/ml; Total Contrast Delivered: 64.0 ml; Total Saline Delivered: 70.0 ml Contrast bolus optimized for the pulmonary arteries. Not diagnostic for the aorta. RENAL FUNCTION: Creatinine 1.2 RADIATION DOSE: CT Rad equipment meets quality standard of care and radiation dose reduction techniq ues were employed. CTDIvol: 14.3 - 52.9 mGy. DLP: 612 mGy-cm. . LIMITATIONS: None. FINDINGS: LUNGS AND PLEURA: Limiting motion artifact. Bullous emphysema. Areas of scarring in the upper lobes particularly, with stable nodular densities. Similar configuration compared to prior. AORTA AND GREAT VESSELS: No focal aneurysm, limited assessment without better contrast opacification. HEART: Cardiac enlargement without pericardial effusion. Mild coronary calcifications. PULMONARY ARTERIES: Well opacified. No filling defects to suggest pulmonary embolus. HILAR AND MEDIASTINAL STRUCTURES: Numerous slightly dense appearing faintly calcified enlarged lymph nodes throughout the mediastinum and hilum. Chronic appearance with the largest conglomeration measu ring up to just over 5.5 cm, right peritracheal. HARDWARE: None in the chest. UPPER ABDOMEN: No significant findings. Limited exam. THYROID AND OTHER SOFT TISSUES: No masses. No adenopathy. BONES: No acute or significant finding. 3D MIPS: Confirm above findings. OTHER: No other significant finding. IMPRESSION: 1. No pulmonary embolus. 2. Stable lung changes. Stable bulky adenopathy. COMMENT: Quality ID # [id number]: Final reports with documentation of one or more dose reduction techniques (e.g., Automated exposure control, adjustment of the mA and/or kV according to patient size, use of iterative reconstruction technique) TECHNICAL DOCUMENTATION: JOB ID: [id number] [employer]- All Rights Reserved
[2017-05-01] MEDS ORDERED: MIDAZOLAM 2 MG/2 ML INJ ONE (18:02)
[2017-05-01] MEDS ORDERED: MORPHINE SULFATE 10 MG/ML INJ ONE (18:03)
[2017-05-01] MEDS ORDERED: MIDAZOLAM 2 MG/2 ML INJ IV ONE (18:04)
[2017-05-01] MEDS ORDERED: MORPHINE SULFATE 10 MG/ML INJ IV ONE (18:04)
[2017-05-01] MEDS ORDERED: ACETAMINOPHEN 650 MG SUPP.RECT PR PRN (18:27)
[2017-05-01] MEDS ORDERED: ONDANSETRON HCL INJ/PF 4 MG/2 ML SDV IV PRN (18:27)
[2017-05-01] MEDS ORDERED: SCOPOLAMINE HYDROBROMIDE 1.5 MG PATCH.TD72 TD ONE (18:32)
--- NOTE | 2017-05-01 18:45 | PDOC H&P ---
History of Present Illness Admission Date/PCP: 05/01/17 18:17 Patient complains of: Back Pain History of Present Illness: BMIAL YOUNG is a 51 year old male presented with complaint of back pain. Pt 's Aunt states that she was giving him pain medication but symptoms continued to worsen. Pt was brought to the ER were pt has found to have elevated troponins. Pt was initially arranged for transfer to [facility] but family changed their mind. Pt's Mother states that pt is to be comfort care only with inpatient hospice. Past Medical History Pulmonary Medical History: Reports: Chronic Obstructive Pulmonary Disease (COPD) Malignancy History Note: Lung Cancer and Lymphoma Past Surgical History Past Surgical History: Reports: None Social History Smoking Status: Former Smoker Frequency of Alcohol Use: None Hx Recreational Drug Use: No Drugs: None Hx Prescription Drug Abuse: No Family History Family History: None, Reviewed & Not Pertinent Parental Family History Reviewed: Yes Children Family History Reviewed: Yes Sibling(s) Family History Reviewed.: Yes Medication/Allergy Home Medications: Folic Acid 1 mg PO DAILY 04/18/17 Multivitamin/Iron/Folic Acid [Centrum Adults Tablet] 1 each PO DAILY 04/18/17 Rivaroxaban [Xarelto] 20 mg PO DAILY 04/18/17 Allergies/Adverse Reactions: Penicillins Allergy (Verified 05/01/17 15:14) Review of Systems ROS unobtainable: Due to mental status - Pt given Pain medication. Physical Exam Vital Signs: Temp Pulse Resp BP Pulse Ox 97.4 F 26 H 96/82 L 95 05/01/17 15:47 05/01/17 18:16 05/01/17 18:16 05/01/17 16:30 General appearance: PRESENT: no acute distress, other - sedated Head exam: PRESENT: atraumatic, normocephalic Eye exam: PRESENT: scleral icterus, other - eyes closed. Ear exam: PRESENT: normal external ear exam Mouth exam: PRESENT: moist, tongue midline Neck exam: ABSENT: carotid bruit, JVD, lymphadenopathy, thyromegaly Respiratory exam: PRESENT: accessory muscle use, decreased breath sounds. ABSENT: chest wall tenderness, clear to auscultation [place], crackles, prolonged expiratory phas, rales, retraction, rhonchi, stridor, symmetrical, tachypnea, unlabored, wheezes, other Cardiovascular exam: PRESENT: RRR. ABSENT: diastolic murmur, rubs, systolic murmur Pulses: PRESENT: normal dorsalis pedis pul Vascular exam: PRESENT: normal capillary refill GI/Abdominal exam: PRESENT: normal bowel sounds, soft. ABSENT: distended, guarding, mass, organolmegaly, rebound, tenderness Rectal exam: PRESENT: deferred Extremities exam: PRESENT: full ROM. ABSENT: calf tenderness, clubbing, pedal edema Musculoskeletal exam: ABSENT: ambulatory, deformity, dislocation, full ROM, normal inspection, tenderness, other Neurological exam: PRESENT: other - sedated due to pain medication. ABSENT: motor sensory deficit Psychiatric exam: PRESENT: other - sedated due to pain medication Skin exam: PRESENT: dry, intact, warm. ABSENT: cyanosis, rash Results Impressions: Chest X-Ray 05/01/17 15:36 IMPRESSION: Changes compatible with bullous emphysema and chronic interstitial fibrosis. Prominent right paratracheal and right hilar adenopathy Chest/Abdomen CTA 05/01/17 16:34 IMPRESSION: 1. No pulmonary embolus. 2. Stable lung changes. Stable bulky adenopathy. Assessment & Plan - Diagnosis (1) Acute hypoxemic respiratory failure Is this a current diagnosis for this admission?: Yes Plan: Will continue NC for supportive care. Will continue Morphine PRN (2) Comfort measures only status Is this a current diagnosis for this admission?: Yes Plan: Ativan and Morphine PRN. Scopolamine PRN. Will consult hospice for inpatient care. (3) STEMI (ST elevation myocardial infarction) Is this a current diagnosis for this admission?: Yes Plan: Supportive Care. Morphine PRN (4) Adenocarcinoma Is this a current diagnosis for this admission?: Yes Plan: Lung Cancer: Morphine PRN. (5) Diffuse lymphadenopathy Is this a current diagnosis for this admission?: Yes Plan: Secondary Lymphoma: Morphine PRN. - Time Time Spent: 30 to 50 Minutes Anticipated discharge: Hospice
[2017-05-01] MEDS ORDERED: HEPARIN SOD (PORCINE) 1,000 UNIT/ML 10 ML VIAL IV PRN (20:16)
[2017-05-01] MEDS ORDERED: SCOPOLAMINE HYDROBROMIDE 1.5 MG PATCH.TD72 ONE (21:00)
[2017-05-01] MEDS: MORPHINE SULFATE 10 MG/ML INJ IV PRN (21:26)
[2017-05-01] MEDS: LORAZEPAM INJ 2 MG/1 ML VIAL IV PRN (21:26)
--- NOTE | 2017-05-01 22:57 | EKG REPORT ---
SEVERITY:- ABNORMAL ECG - SINUS TACHYCARDIA RBBB AND LPFB ANTEROLATERAL INFARCT, RECENT : Confirmed by: Luis Apodaca 01-May-2017 22:56:12
[2017-05-02] MEDS: MORPHINE SULFATE 10 MG/ML INJ IV PRN (02:32)
[2017-05-02] MEDS: LORAZEPAM INJ 2 MG/1 ML VIAL IV PRN ×2 (02:33→05:43)
[2017-05-02 03:00] VITALS: BP 106/72
--- NOTE | 2017-05-03 11:55 | Death Summary ---
Summary Date : 05/02/17 Time of :: 07:03 Resuscitation Status: Comfort Measures Only Consulting Provider: None - Final Diagnosis (1) Acute hypoxemic respiratory failure Is this a current diagnosis for this admission?: Yes (2) STEMI (ST elevation myocardial infarction) Is this a current diagnosis for this admission?: Yes (3) Adenocarcinoma Is this a current diagnosis for this admission?: Yes (4) Diffuse lymphadenopathy Is this a current diagnosis for this admission?: Yes (5) Comfort measures only status Is this a current diagnosis for this admission?: Yes Hospital Course:: Pt was a 51 year old male who presented to our facility with complaint of back pain. Pt has history of Advanced Lung Cancer with diffuse Lymphadenopathy. Pt was admitted to the hospital after being found to have an acute myocardial infarction. Pt's mother and aunt requested that pt be comfort care/hospice. Pt 11/30/2016 at 7:03 am.
[2017-05-04] MEDS ORDERED: SCOPOLAMINE HYDROBROMIDE 1.5 MG PATCH.TD72 TD SCH (10:00)
== END 2017-05-02 08:16 | disposition left against medical advice (07) ==
LOC: ER 15:13 → EH 18:17 → 4S 19:51
PROVIDERS: ADMIT Hospitalist; ATTEND Hospitalist
DX: I21.3 ST elevation (STEMI) myocardial infarction of unspecified site (principal); J96.00 Acute respiratory failure, unspecified whether with hypoxia or hypercapnia; C34.90 Malignant neoplasm of unspecified part of unspecified bronchus or lung; Z79.899 Other long term (current) drug therapy; Z87.891 Personal history of nicotine dependence; J44.9 Chronic obstructive pulmonary disease, unspecified; R59.1 Generalized enlarged lymph nodes; Z88.0 Allergy status to penicillin; Z51.5 Encounter for palliative care
CPT/HCPCS: 36415; 71010; 71275; 80053; 82550; 82553; 82803; 82962; 83605; 84484; 85025; 85610; 93005; 93010; 96361; 96374; 96375; 99291; J1644; J2060; J2250; J2270; J7030